=== PATIENT | female | born 1950 | race Caucasian/White ===

== ENCOUNTER 2021-09-09 06:00 | Emergency (ER) | payer MEDICARE ==
[2021-09-09 07:41] LABS: ALBUMIN 3.5 g/dL (3.2-5.5); ALBUMIN/GLOBULIN RATIO 0.8 (1.0-2.2); BILIRUBIN,TOTAL 13.7 mg/dL (0.2-1.0); CALCIUM 9.3 mg/dL (8.5-10.3); CREATININE 0.3 mg/dL (0.4-1.0); POTASSIUM 3.8 mmol/L (3.5-5.0); TOTAL PROTEIN 7.7 g/dL (6.7-8.2)
[2021-09-09 07:42] LABS: GLUCOSE, URINE (UA) NEGATIVE (NEGATIVE); KETONES,URINE (UA) NEGATIVE (NEGATIVE); LEUKOCYTE ESTERASE, URINE TRACE (NEGATIVE); NITRITE,URINE NEGATIVE (NEGATIVE); OCCULT BLOOD,URINE MODERATE (NEGATIVE); PH,URINE 7.5 PH (5.0-7.5); PROTEIN,URINE NEGATIVE (NEGATIVE); UROBILINOGEN,URINE 0.2 (NORMAL) E.U./dL (NORMAL)
--- NOTE | 2021-09-09 07:45 | ED Physician Documentation ---
PD HPI ABD PAIN - Stated complaint Stated Complaint: CONSTIPATION - Chief complaint Chief Complaint: Abd Pain - History obtained from History obtained from: Patient - Additional information Additional information: The patient comes to the emergency department chief complaint of constipation For approximately the last week and a half. The patient has also been jaundiced for around the same amount of time. She states that she got her second COVID booster since her original shots about the same time. She states she had some upper abdominal pain for a couple of days but then this subsided. The patient states that she had her last normal bowel movement around the time of her booster and that she really has not had much since. She states that she took some milk of magnesia finally a couple of days ago and had some small bits of stool come out at that time. She does not have any history of any liver issues that she knows of, but does admit to drinking 3 to 4 glasses of wine every night throughout the pandemic. No nausea or vomiting. No diarrhea. No fever or chills. The patient states that initially after the booster, she was not eating much, but this only lasted several days and now she is back to eating. She states she feels as though her "peristalsis is stopped". The patient states she feels as though she has a lot of stool in her rectum that needs to come out but it just will not. No other complaints at this time. Review of Systems Ten Systems: 10 systems reviewed and negative Constitutional: reports: Reviewed and negative Eyes: reports: Reviewed and negative Ears: reports: Reviewed and negative Nose: reports: Reviewed and negative Throat: reports: Reviewed and negative Cardiac: reports: Reviewed and negative Respiratory: reports: Reviewed and negative GI: reports: Constipation, Other (Romel) : reports: Reviewed and negative Skin: reports: Other (Jaundice) Musculoskeletal: reports: Reviewed and negative Neurologic: reports: Reviewed and negative Psychiatric: reports: Reviewed and negative Endocrine: reports: Reviewed and negative Immunocompromised: reports: Reviewed and negative PD PAST MEDICAL HISTORY - Past Medical History Past Medical History: Yes Cardiovascular: None Respiratory: None Neuro: None Endocrine/Autoimmune: None 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: 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, Breast cancer : None HEENT: Glaucoma Psych: None Musculoskeletal: None Derm: None - Past Surgical History Past Surgical History: Yes General: Other Ortho: Other - Allergies Allergies/Adverse Reactions: Allergies Allergy/AdvReac Type Severity Reaction Status Date / Time No Known Drug Allergies Allergy Verified 09/09/21 06:16 - Social History Does the pt smoke?: No Smoking Status: Never smoker Does the pt drink ETOH?: Yes Does the pt have substance abuse?: No - Immunizations Immunizations are current?: Yes - POLST Patient has POLST: No PD ED PE NORMAL - Vitals Vital signs reviewed: Yes - General General: Alert and oriented X 3, No acute distress, Well developed/nourished - HEENT HEENT: Atraumatic, PERRL, EOMI, Moist mucous membranes, Other (Moderate icterus) - Neck Neck: Supple, no meningeal sign - Cardiac Cardiac: RRR, No murmur, Strong equal pulses - Respiratory Respiratory: No respiratory distress, Clear bilaterally - Abdomen Abdomen: Soft, Non tender, Non distended, Other (Normal liver size by scratch test) - Rectal Rectal: Other (Large amount of stool in rectum, mostly thick but soft with a few claylike chunks, which are removed by disimpaction. 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, Normal speech - Psych Psych: Normal mood, Normal affect Results - Vitals Vitals: Oxygen O2 Source Room air - Labs Labs: Laboratory Tests 09/09/21 09/09/21 09/09/21 07:19 07:19 07:35 WBC 8.1 RBC 4.72 Hgb 15.4 Hct 43.1 MCV 91.3 MCH 32.6 H MCHC 35.7 RDW 12.4 Plt Count 439 MPV 10.7 Neut # (Auto) 6.3 Lymph # (Auto) 0.9 L [place] # (Auto) 0.8 Eos # (Auto) 0.1 Baso # (Auto) 0.1 Absolute Nucleated RBC 0.00 Nucleated RBC % 0.0 Sodium 129 L Potassium 3.8 Chloride 90 L Carbon Dioxide 26 Anion Gap 13.0 BUN 14 Creatinine 0.3 L Estimated GFR (MDRD) 218 Glucose 138 H Calcium 9.3 Total Bilirubin 13.7 H AST 95 H ALT 64 H Alkaline Phosphatase 385 H Total Protein 7.7 Albumin 3.5 Globulin 4.2 Albumin/Globulin Ratio 0.8 L Lipase 34 Urine Color DARK YELLOW Urine Clarity CLOUDY Urine pH 7.5 Ur Specific [place] 1.015 Urine Protein NEGATIVE Urine Glucose (UA) NEGATIVE Urine Ketones NEGATIVE Urine Occult Blood MODERATE H Urine Nitrite NEGATIVE Urine Bilirubin LARGE H Urine Urobilinogen 0.2 (NORMAL) Ur Leukocyte Esterase TRACE H Urine RBC 6-10 H Urine WBC 6-10 H Ur Squamous Epith Cells MOD Squamous H Amorphous Sediment Moderate Urine Bacteria Moderate H Urine Casts 3-5 Granular Casts Ur Microscopic Review INDICATED Urine Culture Comments NOT INDICATED - Rads (name of study) CT abd/pelvis Radiology: Final report received, EMP read indepedently, See rad report (Diffuse biliary ductal dilatation, concerning for obstruction, recommend MRI) MRCP Radiology: Final report received, EMP read indepedently, See rad report (High- grade obstruction at the ampulla of Vater, 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 She really did not have a lot of impacted stool and I discussed with her that I felt she should be able to have a bowel movement. The patient was given IV fluids and an enema was performed which did result in a large bowel movement. The patient was worked up with laboratory studies, which showed mildly elevated LFTs but a bilirubin of 13.7. Lipase was normal. The patient was sent for CT of the abdomen and pelvis with IV contrast which showed diffuse biliary ductal dilatation, concerning for obstruction. Gallbladder was hydropic but no stones were seen. 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 No evidence of metastatic disease was seen. I discussed the bren ent's case with Dr. Del Rosario of gastroenterology/oncology at [facility], and he stated that there is no role for inpatient treatment at this time and that they could see her in an expedited fashion in their clinic. He stated that she would see one of the ERCP specialists and that patient would likely have ERCP and have the mass removed at that time. He has stated that the clinic will call the pat ient at home to set up the appointment. I have relayed all of this information to the patient and her , who expressed understanding. I have advised the patient not to drink any further alcohol as her liver does not need any further stress at this point in time, given the obstructive process. We have discussed the usual indications for return under the circumstances. Patient will also fo llow-up with her primary doctor soon as possible for additional outpatient support. 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 If you develop further issues with constipation, try using a laxative from above and an o dli-hra-hsllyae enema from below to help clear things out. The more important issue is your jaundice, which has been demonstrated to be due to obstruction of the common bile duct that drains your liver, gallbladder, and pancreas. It appears that there is a small mass that is obstructing the opening from this duct into the small intestine. The opening is called the Ampulla of Vater. Your case has been discussed with Dr. Del Rosario, a gastroenterology specialist from [facility] in [place]. He does not feel that you need to necessarily be emergently transferred to the hospital, but he would like to have you seen in their clinic in an expedited fashion. He has sent your information to his clinic and they should be calling you in the next couple of days to make an appointment for you to be seen. When you go there, the plan will be for you to see a gastroenterology subspecialist who will talk to you about having a procedure called an ERCP, which will provide further imaging of the area, plus allow them to remove the mass and place a stent to keep the opening open. At this point in time, you may eat and drink normally, though it is best to avoid high-fat foods which would trigger your gallbladder and pancreas to discharge their enzymes and further exacerbate the problems with the blockage. Please to eat high-fiber foods which will help you move your bowels. It is best that you avoid alcohol altogether at this point. Discharge Date/Time: 09/09/21 15:31
[2021-09-09 07:47] LABS: BILIRUBIN,URINE LARGE (NEGATIVE); CLARITY,URINE CLOUDY (CLEAR); ICTOTEST,URINE POSITIVE
[2021-09-09] MEDS ORDERED: SODIUM CHLORIDE 0.9% 1,000 ML IV STA (07:47)
[2021-09-09 07:51] LABS: BASOPHILS # (AUTO) 0.1 10^3/uL (0.0-0.1); BASOPHILS % (AUTO) 0.6 %; EOSINOPHILS # (AUTO) 0.1 10^3/uL (0.0-0.7); EOSINOPHILS % (AUTO) 0.7 %; HCT - HEMATOCRIT 43.1 % (37.0-47.0); HGB - HEMOGLOBIN 15.4 g/dL (12.0-16.0); LYMPHOCYTES # (AUTO) 0.9 10^3/uL (1.5-3.5); LYMPHOCYTES % (AUTO) 10.5 %; MEAN CORPUSCULAR HEMOGLOBIN 32.6 pg (27.0-31.0); MEAN CORPUSCULAR HGB CONC 35.7 g/dL (32.0-36.0); MEAN CORPUSCULAR VOLUME 91.3 fL (81.0-99.0); MEAN PLATELET VOLUME 10.7 fL (7.9-10.8); MONOCYTES # (AUTO) 0.8 10^3/uL (0.0-1.0); MONOCYTES % (AUTO) 9.4 %; NEUTROPHILS # (AUTO) 6.3 10^3/uL (1.5-6.6); NEUTROPHILS % (AUTO) 78.3 %; PLT - PLATELET COUNT 439 10^3/uL (130-450); RED BLOOD COUNT 4.72 10^6/uL (4.20-5.40); RED CELL DISTRIBUTION WIDTH 12.4 % (12.0-15.0); WHITE BLOOD COUNT 8.1 x10^3/uL (4.8-10.8)
[2021-09-09 07:55] LABS: AMORPHOUS SEDIMENT,UR Moderate /LPF; BACTERIA,URINE Moderate /HPF (None Seen); CASTS, URINE 3-5 Granular Casts /LPF; SQUAMOUS EPITHELIAL CELL,UR MOD Squamous (<= Few)
[2021-09-09] MEDS ORDERED: IOPAMIDOL-300 100 ML VIAL ONE (08:21)
--- NOTE | 2021-09-09 08:49 | CT Report ---
PROCEDURE: Abdomen/Pelvis W INDICATIONS: Abdominal pain/jaundice CONTRAST: IV CONTRAST: Isovue 300 ml: 100 PO CONTRAST: *NO PO CONTRAST TECHNIQUE: After the administration of intravenous contrast, 5 mm thick sections acquired from the diaphragms to the symphysis. 5 mm thick coronal and sagittal reformats were acquired. For radiation dose reducti on, the following was used: automated exposure control, adjustment of mA and/or kV according to bren ent size. COMPARISON: None. FINDINGS: Inferior chest: No focal consolidation, pleural effusion, or pneumothorax. Biatrial enlargement, par tially imaged. No pericardial effusion. Gallbladder: Hydropic appearance of the gallbladder without calcified gallstones. No substantial wal l thickening or pericholecystic fluid is appreciated. Biliary tree: Marked intrahepatic and extrahepatic biliary ductal dilatation is seen. The common bile duct measures up to 2.6 cm. Liver: The liver demonstrates normal enhancement, size, and contour. Spleen: Normal enhancement, size and morphology is seen. Pancreas: Dilatation of the pancreatic head measuring up to 3.9 mm. No contour deforming masses appre ciated. Adrenals: Normal size without masses. Kidneys/ureters: Normal size and morphology. No solid masses or hydronephrosis. Vasculature: No evidence of aneurysm or other significant vascular pathology. Lymphatic system: No pathologic enlargement by size criteria. GI/mesentery: No evidence of intestinal obstruction or inflammatory change. The appendix is not well seen. Peritoneum/Retroperitoneum: No free intraperitoneal gas or large collection. Urinary bladder: Not well distended. Pelvic organs: No significant abnormality. Bones/soft tissues: Multifocal degenerative change. IMPRESSION: 1.Hydropic appearance of the gallbladder with marked intrahepatic and extrahepatic biliary ductal dil atation as well as mild dilatation of the pancreatic duct raising concern for an obstructing lesion. Consider magnetic resonance imaging or endoscopic ultrasound for further evaluation. Reviewed by: Huan Ley MD on 09/09/2021 8:48 AM PDT Approved by: Huan Ley MD on 09/09/2021 8:48 AM PDT Station ID: [id number]
[2021-09-09] MEDS ORDERED: GADOBUTROL 7.5 MMOL/7.5 ML VIAL ONE (11:13)
--- NOTE | 2021-09-09 13:31 | MRI Report ---
PROCEDURE: MRCP W/WO INDICATIONS: JAUNDICE, BILIARY DILATATION, ?MASS CONTRAST: IV CONTRAST: Gadavist ml: 6.3 TECHNIQUE: Coronal ultra fast SE through the abdomen, axial 2-D spoiled GE in- and [id number], and breath-hold T2 FSE with fat saturation through the biliary system and pancreas. Oblique coronal and axial thin- slice ultra fast SE, radial thick-slab ultra fast SE centered on the extrahepatic bile ducts. COMPARISON: FINDINGS: Image quality: Excellent. Pancreas and biliary system: Probable very small ampullary region malignancy with abrupt cut off of t he distal common duct and marked dilatation of the entire biliary tree. There is also mild dilatation of the pancreatic duct. Gallbladder is diffusely dilated with very mild wall thickening. No gallston es. Other solid organs: Liver and spleen are normal in size. No liver metastatic lesions identified. No adrenal nodules. Both kidneys are normal in size, without hydronephrosis. Nodes and vessels: No retroperitoneal or mesenteric adenopathy by size criteria. Aorta and inferior vena cava are normal in size. Bowel and peritoneum: Unenhanced bowel loops are normal in caliber. No free fluid. Lung bases: No basal pleural effusions. Heart size is normal. Bones and soft tissues: No ventral hernias. Bone marrow is of normal overall signal. IMPRESSION: 1. 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 There is also mild dilatation of the pancrea tic duct. 2. No evidence of metastatic disease. Reviewed by: Dwight Jo MD on 09/09/2021 1:30 PM PDT Approved by: Dwight Jo MD on 09/09/2021 1:30 PM PDT Station ID: [id number]
[2021-09-09 15:25] VITALS: BP 136/75
[2021-09-09] MEDS ORDERED: IOPAMIDOL-300 100 ML VIAL IVP ONE (16:31)
[2021-09-09] MEDS ORDERED: GADOBUTROL 7.5 MMOL/7.5 ML VIAL IVP ONE (16:51)
== END 2021-09-09 15:31 | disposition home or self-care (01) ==
LOC: ED 06:00
DX: K83.1 Obstruction of bile duct (principal); C24.1 Malignant neoplasm of ampulla of Vater
CPT/HCPCS: 36415; 74177; 74183; 80053; 81001; 83690; 85025; 96360; 99284; A9585; Q9967; 81003; 87086

== ENCOUNTER 2022-02-11 07:10 | Outpatient (CLI) | payer MEDICARE | END 2022-02-11 07:11 | disposition critical access hospital (66) | LOC: EMS 07:10 | DX: R53.1 Weakness (principal); R11.2 Nausea with vomiting, unspecified; R19.7 Diarrhea, unspecified; R10.817 Generalized abdominal tenderness | CPT/HCPCS: A0425; A0427 ==

== ENCOUNTER 2022-03-01 13:55 | Outpatient (CLI) | payer MEDICARE ==
[2022-03-01 14:22] LABS: BASOPHILS # (AUTO) 0.1 10^3/uL (0.0-0.1); BASOPHILS % (AUTO) 0.9 %; EOSINOPHILS # (AUTO) 0.1 10^3/uL (0.0-0.7); EOSINOPHILS % (AUTO) 0.6 %; HCT - HEMATOCRIT 33.4 % (37.0-47.0); HGB - HEMOGLOBIN 10.4 g/dL (12.0-16.0); LYMPHOCYTES # (AUTO) 2.6 10^3/uL (1.5-3.5); LYMPHOCYTES % (AUTO) 22.6 %; MEAN CORPUSCULAR HEMOGLOBIN 29.8 pg (27.0-31.0); MEAN CORPUSCULAR HGB CONC 31.1 g/dL (32.0-36.0); MEAN CORPUSCULAR VOLUME 95.7 fL (81.0-99.0); MEAN PLATELET VOLUME 11.7 fL (7.9-10.8); MONOCYTES # (AUTO) 1.3 10^3/uL (0.0-1.0); MONOCYTES % (AUTO) 11.6 %; NEUTROPHILS # (AUTO) 7.2 10^3/uL (1.5-6.6); NEUTROPHILS % (AUTO) 63.5 %; PLT - PLATELET COUNT 524 10^3/uL (130-450); RED BLOOD COUNT 3.49 10^6/uL (4.20-5.40); WHITE BLOOD COUNT 11.4 x10^3/uL (4.8-10.8)
[2022-03-01 14:32] LABS: ALBUMIN 2.4 g/dL (3.2-5.5); ALBUMIN/GLOBULIN RATIO 0.7 (1.0-2.2); BILIRUBIN,TOTAL 0.5 mg/dL (0.2-1.0); CALCIUM 8.9 mg/dL (8.5-10.3); CREATININE 0.4 mg/dL (0.4-1.0); MAGNESIUM 1.9 mg/dL (1.7-2.8); PHOSPHORUS 4.7 mg/dL (2.5-4.6); POTASSIUM 4.8 mmol/L (3.5-5.0); TOTAL PROTEIN 5.7 g/dL (6.7-8.2)
== END 2022-03-01 13:56 | disposition home or self-care (01) ==
LOC: LAB 13:55
PROVIDERS: ATTEND Internal Medicine
DX: C25.9 Malignant neoplasm of pancreas, unspecified (principal)
CPT/HCPCS: 36415; 80053; 83735; 84100; 85025

== ENCOUNTER 2022-03-08 09:10 | Outpatient (CLI) | payer MEDICARE ==
[2022-03-08 18:14] LABS: BASOPHILS # (AUTO) 0.1 10^3/uL (0.0-0.1); BASOPHILS % (AUTO) 0.9 %; EOSINOPHILS # (AUTO) 0.6 10^3/uL (0.0-0.7); EOSINOPHILS % (AUTO) 5.8 %; HCT - HEMATOCRIT 34.1 % (37.0-47.0); HGB - HEMOGLOBIN 10.4 g/dL (12.0-16.0); LYMPHOCYTES # (AUTO) 2.4 10^3/uL (1.5-3.5); LYMPHOCYTES % (AUTO) 23.8 %; MEAN CORPUSCULAR HEMOGLOBIN 30.6 pg (27.0-31.0); MEAN CORPUSCULAR HGB CONC 30.5 g/dL (32.0-36.0); MEAN CORPUSCULAR VOLUME 100.3 fL (81.0-99.0); MEAN PLATELET VOLUME 12.5 fL (7.9-10.8); MONOCYTES # (AUTO) 0.9 10^3/uL (0.0-1.0); MONOCYTES % (AUTO) 8.5 %; NEUTROPHILS # (AUTO) 6.1 10^3/uL (1.5-6.6); NEUTROPHILS % (AUTO) 60.7 %; PLT - PLATELET COUNT 374 10^3/uL (130-450); RED CELL DISTRIBUTION WIDTH 19.9 % (12.0-15.0)
[2022-03-08 19:07] LABS: ALBUMIN 2.7 g/dL (3.2-5.5); ALBUMIN/GLOBULIN RATIO 0.9 (1.0-2.2); ALKALINE PHOSPHATASE 118 IU/L (42-121); ALT ALANINE AMINOTRANSFERASE 13 IU/L (10-60); AST ASPARTATE AMINOTRANSFERASE 34 IU/L (10-42); BILIRUBIN,TOTAL 0.4 mg/dL (0.2-1.0); BUN - BLOOD UREA NITROGEN 33 mg/dL (6-20); CALCIUM 8.9 mg/dL (8.5-10.3); CARBON DIOXIDE - CO2 26 mmol/L (21-32); CHLORIDE 100 mmol/L (101-111); CREATININE 0.4 mg/dL (0.4-1.0); GFR - MDRD 156 (>89); GLUCOSE 108 mg/dL (70-100); MAGNESIUM 1.9 mg/dL (1.7-2.8); PHOSPHORUS 4.8 mg/dL (2.5-4.6); POTASSIUM 4.6 mmol/L (3.5-5.0); PREALBUMIN 23 mg/dL (18-45); SODIUM 134 mmol/L (135-145); TOTAL PROTEIN 5.7 g/dL (6.7-8.2); TRIGLYCERIDES 76 mg/dL
[2022-03-08 19:10] LABS: CRP - C-REACTIVE PROTEIN < 1.0 mg/dL (0-1.0)
== END 2022-03-08 23:59 | disposition home or self-care (01) ==
LOC: LAB.R 09:10
PROVIDERS: ATTEND Internal Medicine
DX: C25.9 Malignant neoplasm of pancreas, unspecified (principal)
CPT/HCPCS: 80053; 83735; 84100; 84134; 84478; 85025; 86140

== ENCOUNTER 2022-03-15 08:00 | Outpatient (CLI) | payer MEDICARE ==
[2022-03-15 17:37] LABS: EOSINOPHILS % (AUTO) 0.5 %; HCT - HEMATOCRIT 34.6 % (37.0-47.0); LYMPHOCYTES % (AUTO) 2.3 %; MEAN CORPUSCULAR HGB CONC 31.8 g/dL (32.0-36.0); MEAN CORPUSCULAR VOLUME 97.5 fL (81.0-99.0); MEAN PLATELET VOLUME 13.6 fL (7.9-10.8); NEUTROPHILS % (AUTO) 91.4 %; PLT - PLATELET COUNT 232 10^3/uL (130-450); RED BLOOD COUNT 3.55 10^6/uL (4.20-5.40); RED CELL DISTRIBUTION WIDTH 16.4 % (12.0-15.0); WHITE BLOOD COUNT 27.4 x10^3/uL (4.8-10.8)
[2022-03-15 17:40] LABS: ABNORMAL LYMPHS % (MANUAL) 0 %
[2022-03-15 17:44] LABS: ALBUMIN 2.6 g/dL (3.2-5.5); ALBUMIN/GLOBULIN RATIO 0.9 (1.0-2.2); BILIRUBIN,TOTAL 0.7 mg/dL (0.2-1.0); CALCIUM 8.3 mg/dL (8.5-10.3); CREATININE 0.5 mg/dL (0.4-1.0); MAGNESIUM 1.9 mg/dL (1.7-2.8); PHOSPHORUS 3.8 mg/dL (2.5-4.6); POTASSIUM 4.4 mmol/L (3.5-5.0); TOTAL PROTEIN 5.4 g/dL (6.7-8.2)
[2022-03-15 18:03] LABS: BAND NEUTROPHILS % (MANUAL) 4 %; DIFFERENTIAL COMMENT MANUAL DIFFERENTIAL; LYMPHOCYTES # (MANUAL) 1.1 10^3/uL (1.5-3.5); LYMPHOCYTES % (MANUAL) 4 %; MONOCYTES # (MANUAL) 0.3 10^3/uL (0.0-1.0); PLATELET ESTIMATE, MANUAL NORMAL (130-450,000) (NORMAL); PLATELET MORPHOLOGY NORMAL APPEARANCE (NORMAL); RBC MORPHOLOGY (MULTIPLE) 2+ ANISOCYTOSIS (NORMAL); WBC MORPHOLOGY (MULTIPLE) 1+ TOXIC GRANULATION (NORMAL)
== END 2022-03-15 23:59 | disposition home or self-care (01) ==
LOC: LAB.R 08:00
PROVIDERS: ATTEND Internal Medicine
DX: C25.9 Malignant neoplasm of pancreas, unspecified (principal)
CPT/HCPCS: 80053; 83735; 84100; 85025

== ENCOUNTER 2022-03-22 08:00 | Outpatient (CLI) | payer MEDICARE ==
[2022-03-22 18:05] LABS: BASOPHILS % (AUTO) 0.2 %; EOSINOPHILS # (AUTO) 0.1 10^3/uL (0.0-0.7); EOSINOPHILS % (AUTO) 0.5 %; HCT - HEMATOCRIT 32.2 % (37.0-47.0); HGB - HEMOGLOBIN 10.1 g/dL (12.0-16.0); LYMPHOCYTES % (AUTO) 16.2 %; MEAN CORPUSCULAR HEMOGLOBIN 30.1 pg (27.0-31.0); MEAN CORPUSCULAR HGB CONC 31.4 g/dL (32.0-36.0); MEAN CORPUSCULAR VOLUME 95.8 fL (81.0-99.0); MEAN PLATELET VOLUME 12.3 fL (7.9-10.8); MONOCYTES # (AUTO) 0.7 10^3/uL (0.0-1.0); MONOCYTES % (AUTO) 5.7 %; NEUTROPHILS # (AUTO) 9.6 10^3/uL (1.5-6.6); NEUTROPHILS % (AUTO) 76.8 %; PLT - PLATELET COUNT 221 10^3/uL (130-450); RED BLOOD COUNT 3.36 10^6/uL (4.20-5.40); RED CELL DISTRIBUTION WIDTH 15.6 % (12.0-15.0); WHITE BLOOD COUNT 12.6 x10^3/uL (4.8-10.8)
[2022-03-22 18:31] LABS: SLIDE REVIEW? Indicated
[2022-03-22 18:43] LABS: ALBUMIN 2.3 g/dL (3.2-5.5); ALBUMIN/GLOBULIN RATIO 0.7 (1.0-2.2); BILIRUBIN,TOTAL 0.4 mg/dL (0.2-1.0); CALCIUM 8.3 mg/dL (8.5-10.3); CREATININE 0.4 mg/dL (0.4-1.0); MAGNESIUM 1.8 mg/dL (1.7-2.8); PHOSPHORUS 3.4 mg/dL (2.5-4.6); TOTAL PROTEIN 5.4 g/dL (6.7-8.2)
[2022-03-22 19:01] LABS: DIFFERENTIAL COMMENT MANUAL=AUTO DIFF; PLATELET ESTIMATE, MANUAL NORMAL (130-450,000) (NORMAL); PLATELET MORPHOLOGY NORMAL APPEARANCE (NORMAL); RBC MORPHOLOGY (MULTIPLE) NORMAL APPEARANCE (NORMAL)
== END 2022-03-22 23:59 | disposition home or self-care (01) ==
LOC: LAB.R 08:00
PROVIDERS: ATTEND Internal Medicine
DX: C25.9 Malignant neoplasm of pancreas, unspecified (principal)
CPT/HCPCS: 80053; 83735; 84100; 85025

== ENCOUNTER 2022-03-29 11:22 | Outpatient (CLI) | payer MEDICARE ==
[2022-03-29 15:30] LABS: BASOPHILS % (AUTO) 0.1 %; EOSINOPHILS % (AUTO) 0.1 %; HCT - HEMATOCRIT 33.2 % (37.0-47.0); HGB - HEMOGLOBIN 10.7 g/dL (12.0-16.0); LYMPHOCYTES % (AUTO) 5.1 %; MEAN CORPUSCULAR HEMOGLOBIN 30.6 pg (27.0-31.0); MEAN CORPUSCULAR HGB CONC 32.2 g/dL (32.0-36.0); MEAN CORPUSCULAR VOLUME 94.9 fL (81.0-99.0); MEAN PLATELET VOLUME 11.6 fL (7.9-10.8); MONOCYTES % (AUTO) 1.4 %; NEUTROPHILS % (AUTO) 89.7 %; PLT - PLATELET COUNT 187 10^3/uL (130-450); WHITE BLOOD COUNT 34.9 x10^3/uL (4.8-10.8)
[2022-03-29 15:32] LABS: ABNORMAL LYMPHS % (MANUAL) 0 %
[2022-03-29 15:58] LABS: BAND NEUTROPHILS % (MANUAL) 6 %; LYMPHOCYTES # (MANUAL) 2.8 10^3/uL (1.5-3.5); LYMPHOCYTES % (MANUAL) 8 %; MONOCYTES # (MANUAL) 0.3 10^3/uL (0.0-1.0); NEUTROPHILS # (MANUAL) 31.8 10^3/uL (1.5-6.6); PLATELET ESTIMATE, MANUAL NORMAL (130-450,000) (NORMAL); PLATELET MORPHOLOGY NORMAL APPEARANCE (NORMAL); RBC MORPHOLOGY (MULTIPLE) NORMAL APPEARANCE (NORMAL); WBC MORPHOLOGY (MULTIPLE) 1+ TOXIC GRANULATION (NORMAL)
[2022-03-29 15:59] LABS: DIFFERENTIAL COMMENT MANUAL DIFFERENTIAL
[2022-03-29 16:02] LABS: ALBUMIN 2.7 g/dL (3.2-5.5); BILIRUBIN,TOTAL 0.2 mg/dL (0.2-1.0); CALCIUM 8.4 mg/dL (8.5-10.3); CREATININE 0.4 mg/dL (0.4-1.0); MAGNESIUM 2.1 mg/dL (1.7-2.8); PHOSPHORUS 3.6 mg/dL (2.5-4.6); POTASSIUM 4.2 mmol/L (3.5-5.0); TOTAL PROTEIN 5.5 g/dL (6.7-8.2)
== END 2022-03-29 11:23 | disposition home or self-care (01) ==
LOC: LAB 11:22 → LAB.R 11:23
PROVIDERS: ATTEND Internal Medicine
DX: C25.9 Malignant neoplasm of pancreas, unspecified (principal)
CPT/HCPCS: 36415; 80053; 83735; 84100; 85025

== ENCOUNTER 2022-04-05 14:39 | Outpatient (CLI) | payer MEDICARE ==
[2022-04-05 14:47] LABS: BASOPHILS % (AUTO) 0.4 %; EOSINOPHILS % (AUTO) 0.3 %; HCT - HEMATOCRIT 34.5 % (37.0-47.0); HGB - HEMOGLOBIN 10.8 g/dL (12.0-16.0); LYMPHOCYTES % (AUTO) 16.5 %; MEAN CORPUSCULAR HGB CONC 31.3 g/dL (32.0-36.0); MEAN CORPUSCULAR VOLUME 95.8 fL (81.0-99.0); MEAN PLATELET VOLUME 12.7 fL (7.9-10.8); MONOCYTES % (AUTO) 10.3 %; NEUTROPHILS % (AUTO) 69.3 %; PLT - PLATELET COUNT 270 10^3/uL (130-450); RED CELL DISTRIBUTION WIDTH 15.3 % (12.0-15.0); WHITE BLOOD COUNT 15.8 x10^3/uL (4.8-10.8)
[2022-04-05 15:13] LABS: ABNORMAL LYMPHS % (MANUAL) 0 %
[2022-04-05 15:23] LABS: ALBUMIN 2.6 g/dL (3.2-5.5); ALBUMIN/GLOBULIN RATIO 0.8 (1.0-2.2); ALKALINE PHOSPHATASE 182 IU/L (42-121); ALT ALANINE AMINOTRANSFERASE 16 IU/L (10-60); AST ASPARTATE AMINOTRANSFERASE 39 IU/L (10-42); BILIRUBIN,TOTAL < 0.2 mg/dL (0.2-1.0); BUN - BLOOD UREA NITROGEN 25 mg/dL (6-20); CALCIUM 8.7 mg/dL (8.5-10.3); CARBON DIOXIDE - CO2 28 mmol/L (21-32); CHLORIDE 100 mmol/L (101-111); CREATININE 0.4 mg/dL (0.4-1.0); GFR - MDRD 156 (>89); GLUCOSE 116 mg/dL (70-100); MAGNESIUM 1.9 mg/dL (1.7-2.8); PHOSPHORUS 3.8 mg/dL (2.5-4.6); POTASSIUM 4.5 mmol/L (3.5-5.0); SODIUM 135 mmol/L (135-145); TOTAL PROTEIN 5.7 g/dL (6.7-8.2)
[2022-04-05 15:48] LABS: BAND NEUTROPHILS % (MANUAL) 6 %; BASOPHILS # (MANUAL) 0.2 10^3/uL (0-0.1); BASOPHILS % (MANUAL) 1 %; DIFFERENTIAL COMMENT MANUAL DIFFERENTIAL; LYMPHOCYTES # (MANUAL) 2.5 10^3/uL (1.5-3.5); LYMPHOCYTES % (MANUAL) 16 %; MONOCYTES # (MANUAL) 1.3 10^3/uL (0.0-1.0); NEUTROPHILS # (MANUAL) 11.9 10^3/uL (1.5-6.6); PLATELET ESTIMATE, MANUAL NORMAL (130-450,000) (NORMAL); PLATELET MORPHOLOGY NORMAL APPEARANCE (NORMAL); RBC MORPHOLOGY (MULTIPLE) NORMAL APPEARANCE (NORMAL)
== END 2022-04-05 14:40 | disposition home or self-care (01) ==
LOC: LAB.R 14:39
PROVIDERS: ATTEND Internal Medicine
DX: C25.9 Malignant neoplasm of pancreas, unspecified (principal)
CPT/HCPCS: 80053; 83735; 84100; 85025

== ENCOUNTER 2022-04-12 15:10 | Outpatient (CLI) | payer MEDICARE ==
[2022-04-12 15:30] LABS: HCT - HEMATOCRIT 34.2 % (37.0-47.0); HGB - HEMOGLOBIN 11.2 g/dL (12.0-16.0); LYMPHOCYTES # (AUTO) 1.3 10^3/uL (1.5-3.5); LYMPHOCYTES % (AUTO) 1.7 %; MEAN CORPUSCULAR HEMOGLOBIN 31.7 pg (27.0-31.0); MEAN CORPUSCULAR HGB CONC 32.7 g/dL (32.0-36.0); MEAN CORPUSCULAR VOLUME 96.9 fL (81.0-99.0); MEAN PLATELET VOLUME 12.6 fL (7.9-10.8); MONOCYTES # (AUTO) 0.6 10^3/uL (0.0-1.0); MONOCYTES % (AUTO) 0.8 %; NEUTROPHILS # (AUTO) 70.8 10^3/uL (1.5-6.6); NEUTROPHILS % (AUTO) 91.9 %; PLT - PLATELET COUNT 153 10^3/uL (130-450); RED BLOOD COUNT 3.53 10^6/uL (4.20-5.40); RED CELL DISTRIBUTION WIDTH 15.2 % (12.0-15.0)
[2022-04-12 15:46] LABS: ALBUMIN 2.9 g/dL (3.2-5.5); ALBUMIN/GLOBULIN RATIO 1.1 (1.0-2.2); BILIRUBIN,TOTAL 0.5 mg/dL (0.2-1.0); CALCIUM 8.5 mg/dL (8.5-10.3); CREATININE 0.4 mg/dL (0.4-1.0); PHOSPHORUS 3.6 mg/dL (2.5-4.6); POTASSIUM 4.2 mmol/L (3.5-5.0); TOTAL PROTEIN 5.6 g/dL (6.7-8.2)
[2022-04-12 16:15] LABS: SLIDE REVIEW? Indicated; WHITE BLOOD COUNT 77.1 x10^3/uL (4.8-10.8)
[2022-04-12 17:03] LABS: DIFFERENTIAL COMMENT MANUAL=AUTO DIFF; PLATELET ESTIMATE, MANUAL NORMAL (130-450,000) (NORMAL); PLATELET MORPHOLOGY NORMAL APPEARANCE (NORMAL); RBC MORPHOLOGY (MULTIPLE) NORMAL APPEARANCE (NORMAL)
== END 2022-04-12 15:11 | disposition home or self-care (01) ==
LOC: LAB.R 15:10
PROVIDERS: ATTEND Internal Medicine
DX: C25.9 Malignant neoplasm of pancreas, unspecified (principal)
CPT/HCPCS: 80053; 83735; 84100; 84134; 84478; 85025; 86140

== ENCOUNTER 2022-04-19 08:00 | Outpatient (CLI) | payer MEDICARE ==
[2022-04-19 15:59] LABS: BASOPHILS % (AUTO) 0.4 %; EOSINOPHILS % (AUTO) 0.3 %; HCT - HEMATOCRIT 32.8 % (37.0-47.0); HGB - HEMOGLOBIN 10.4 g/dL (12.0-16.0); LYMPHOCYTES % (AUTO) 18.2 %; MEAN CORPUSCULAR HEMOGLOBIN 30.4 pg (27.0-31.0); MEAN CORPUSCULAR HGB CONC 31.7 g/dL (32.0-36.0); MEAN CORPUSCULAR VOLUME 95.9 fL (81.0-99.0); MEAN PLATELET VOLUME 13.7 fL (7.9-10.8); MONOCYTES % (AUTO) 8.7 %; NEUTROPHILS % (AUTO) 71.3 %; PLT - PLATELET COUNT 234 10^3/uL (130-450); RED BLOOD COUNT 3.42 10^6/uL (4.20-5.40); RED CELL DISTRIBUTION WIDTH 15.6 % (12.0-15.0); WHITE BLOOD COUNT 12.6 x10^3/uL (4.8-10.8)
[2022-04-19 16:02] LABS: ABNORMAL LYMPHS % (MANUAL) 0 %
[2022-04-19 16:08] LABS: ALBUMIN 2.7 g/dL (3.2-5.5); BILIRUBIN,TOTAL 0.2 mg/dL (0.2-1.0); CALCIUM 8.3 mg/dL (8.5-10.3); CREATININE 0.4 mg/dL (0.4-1.0); MAGNESIUM 1.8 mg/dL (1.7-2.8); PHOSPHORUS 3.4 mg/dL (2.5-4.6); POTASSIUM 4.3 mmol/L (3.5-5.0); TOTAL PROTEIN 5.3 g/dL (6.7-8.2)
[2022-04-19 16:37] LABS: BAND NEUTROPHILS % (MANUAL) 1 %; EOSINOPHILS # (MANUAL) 0.1 10^3/uL (0-0.7); LYMPHOCYTES # (MANUAL) 2.1 10^3/uL (1.5-3.5); LYMPHOCYTES % (MANUAL) 11 %; MONOCYTES # (MANUAL) 1.1 10^3/uL (0.0-1.0); NEUTROPHILS # (MANUAL) 9.2 10^3/uL (1.5-6.6); REACTIVE LYMPHS % (MANUAL) 6 %
[2022-04-19 16:38] LABS: DIFFERENTIAL COMMENT MANUAL DIFFERENTIAL; PLATELET ESTIMATE, MANUAL NORMAL (130-450,000) (NORMAL); PLATELET MORPHOLOGY NORMAL APPEARANCE (NORMAL); WBC MORPHOLOGY (MULTIPLE) NORMAL APPEARANCE (NORMAL)
== END 2022-04-19 23:59 | disposition home or self-care (01) ==
LOC: LAB.R 08:00
PROVIDERS: ATTEND Internal Medicine
DX: C25.9 Malignant neoplasm of pancreas, unspecified (principal)
CPT/HCPCS: 80053; 83735; 84100; 85025

== ENCOUNTER 2022-04-26 17:42 | Outpatient (CLI) | payer MEDICARE ==
[2022-04-26 18:04] LABS: BASOPHILS % (AUTO) 0.1 %; EOSINOPHILS # (AUTO) 0.1 10^3/uL (0.0-0.7); EOSINOPHILS % (AUTO) 0.1 %
[2022-04-26 18:09] LABS: BASOPHILS # (AUTO) 0.1 10^3/uL (0.0-0.1); HCT - HEMATOCRIT 32.9 % (37.0-47.0); HGB - HEMOGLOBIN 10.7 g/dL (12.0-16.0); LYMPHOCYTES % (AUTO) 2.5 %; MEAN CORPUSCULAR HEMOGLOBIN 31.6 pg (27.0-31.0); MEAN CORPUSCULAR HGB CONC 32.5 g/dL (32.0-36.0); MEAN CORPUSCULAR VOLUME 97.1 fL (81.0-99.0); MEAN PLATELET VOLUME 13.2 fL (7.9-10.8); MONOCYTES # (AUTO) 0.9 10^3/uL (0.0-1.0); MONOCYTES % (AUTO) 1.1 %; NEUTROPHILS # (AUTO) 73.1 10^3/uL (1.5-6.6); NEUTROPHILS % (AUTO) 91.7 %; PLT - PLATELET COUNT 163 10^3/uL (130-450); RED BLOOD COUNT 3.39 10^6/uL (4.20-5.40); RED CELL DISTRIBUTION WIDTH 15.9 % (12.0-15.0)
[2022-04-26 18:10] LABS: SLIDE REVIEW? Indicated
[2022-04-26 18:13] LABS: ALBUMIN 2.9 g/dL (3.2-5.5); ALBUMIN/GLOBULIN RATIO 1.2 (1.0-2.2); BILIRUBIN,TOTAL 0.5 mg/dL (0.2-1.0); CALCIUM 8.3 mg/dL (8.5-10.3); CREATININE 0.3 mg/dL (0.4-1.0); PHOSPHORUS 3.9 mg/dL (2.5-4.6); POTASSIUM 4.5 mmol/L (3.5-5.0); TOTAL PROTEIN 5.4 g/dL (6.7-8.2)
[2022-04-26 19:14] LABS: DIFFERENTIAL COMMENT MANUAL=AUTO DIFF; PLATELET ESTIMATE, MANUAL NORMAL (130-450,000) (NORMAL); PLATELET MORPHOLOGY NORMAL APPEARANCE (NORMAL); RBC MORPHOLOGY (MULTIPLE) NORMAL APPEARANCE (NORMAL); WBC MORPHOLOGY (MULTIPLE) 1+ TOXIC GRANULATION (NORMAL)
[2022-04-26 20:08] LABS: WHITE BLOOD COUNT 79.7 x10^3/uL (4.8-10.8)
== END 2022-04-26 17:43 | disposition home or self-care (01) ==
LOC: LAB.R 17:42
PROVIDERS: ATTEND Internal Medicine
DX: C25.9 Malignant neoplasm of pancreas, unspecified (principal)
CPT/HCPCS: 80053; 83735; 84100; 85025

== ENCOUNTER 2022-05-04 15:21 | Outpatient (CLI) | payer MEDICARE ==
[2022-05-04 15:38] LABS: BASOPHILS # (AUTO) 0.1 10^3/uL (0.0-0.1); CALCIUM 8.8 mg/dL (8.5-10.3); EOSINOPHILS # (AUTO) 0.1 10^3/uL (0.0-0.7); EOSINOPHILS % (AUTO) 0.6 %; HCT - HEMATOCRIT 36.1 % (37.0-47.0); HGB - HEMOGLOBIN 11.1 g/dL (12.0-16.0); LYMPHOCYTES # (AUTO) 2.1 10^3/uL (1.5-3.5); LYMPHOCYTES % (AUTO) 18.2 %; MEAN CORPUSCULAR HEMOGLOBIN 29.4 pg (27.0-31.0); MEAN CORPUSCULAR HGB CONC 30.7 g/dL (32.0-36.0); MEAN CORPUSCULAR VOLUME 95.8 fL (81.0-99.0); MEAN PLATELET VOLUME 13.9 fL (7.9-10.8); MONOCYTES % (AUTO) 9.1 %; NEUTROPHILS # (AUTO) 8.1 10^3/uL (1.5-6.6); NEUTROPHILS % (AUTO) 70.3 %; PLT - PLATELET COUNT 246 10^3/uL (130-450); POTASSIUM 4.5 mmol/L (3.5-5.0); RED BLOOD COUNT 3.77 10^6/uL (4.20-5.40); RED CELL DISTRIBUTION WIDTH 15.9 % (12.0-15.0); WHITE BLOOD COUNT 11.5 x10^3/uL (4.8-10.8)
[2022-05-04 16:08] LABS: ALBUMIN 3.1 g/dL (3.2-5.5); BILIRUBIN,TOTAL 0.4 mg/dL (0.2-1.0); CREATININE 0.4 mg/dL (0.4-1.0); PHOSPHORUS 4.3 mg/dL (2.5-4.6); TOTAL PROTEIN 6.1 g/dL (6.7-8.2)
== END 2022-05-04 15:22 | disposition home or self-care (01) ==
LOC: LAB.R 15:21
PROVIDERS: ATTEND Internal Medicine
DX: C25.9 Malignant neoplasm of pancreas, unspecified (principal)
CPT/HCPCS: 80053; 83735; 84100; 85025

== ENCOUNTER 2022-05-11 16:24 | Outpatient (CLI) | payer MEDICARE ==
[2022-05-11 16:35] LABS: BASOPHILS % (AUTO) 0.1 %; EOSINOPHILS # (AUTO) 0.3 10^3/uL (0.0-0.7); EOSINOPHILS % (AUTO) 0.6 %; HCT - HEMATOCRIT 36.4 % (37.0-47.0); HGB - HEMOGLOBIN 11.3 g/dL (12.0-16.0); LYMPHOCYTES # (AUTO) 2.1 10^3/uL (1.5-3.5); LYMPHOCYTES % (AUTO) 4.6 %; MEAN CORPUSCULAR VOLUME 96.6 fL (81.0-99.0); MONOCYTES # (AUTO) 1.1 10^3/uL (0.0-1.0); MONOCYTES % (AUTO) 2.5 %; NEUTROPHILS % (AUTO) 89.1 %; PLT - PLATELET COUNT 200 10^3/uL (130-450); RED BLOOD COUNT 3.77 10^6/uL (4.20-5.40)
[2022-05-11 16:46] LABS: SLIDE REVIEW? Indicated; WHITE BLOOD COUNT 44.9 x10^3/uL (4.8-10.8)
[2022-05-11 16:51] LABS: ALBUMIN 3.2 g/dL (3.2-5.5); ALBUMIN/GLOBULIN RATIO 1.2 (1.0-2.2); ALKALINE PHOSPHATASE 230 IU/L (42-121); ALT ALANINE AMINOTRANSFERASE 15 IU/L (10-60); AST ASPARTATE AMINOTRANSFERASE 35 IU/L (10-42); BILIRUBIN,TOTAL 0.4 mg/dL (0.2-1.0); BUN - BLOOD UREA NITROGEN 31 mg/dL (6-20); CALCIUM 8.6 mg/dL (8.5-10.3); CARBON DIOXIDE - CO2 27 mmol/L (21-32); CHLORIDE 94 mmol/L (101-111); CREATININE 0.4 mg/dL (0.4-1.0); GFR - MDRD 156 (>89); GLUCOSE 106 mg/dL (70-100); PHOSPHORUS 4.1 mg/dL (2.5-4.6); POTASSIUM 4.6 mmol/L (3.5-5.0); PREALBUMIN 21 mg/dL (18-45); SODIUM 133 mmol/L (135-145); TOTAL PROTEIN 5.8 g/dL (6.7-8.2); TRIGLYCERIDES 59 mg/dL
[2022-05-11 16:54] LABS: CRP - C-REACTIVE PROTEIN < 1.0 mg/dL (0-1.0)
[2022-05-11 17:16] LABS: DIFFERENTIAL COMMENT MANUAL=AUTO DIFF; PLATELET ESTIMATE, MANUAL NORMAL (130-450,000) (NORMAL); PLATELET MORPHOLOGY NORMAL APPEARANCE (NORMAL); RBC MORPHOLOGY (MULTIPLE) NORMAL APPEARANCE (NORMAL)
== END 2022-05-11 16:25 | disposition home or self-care (01) ==
LOC: LAB.R 16:24
PROVIDERS: ATTEND Internal Medicine
DX: C25.9 Malignant neoplasm of pancreas, unspecified (principal)
CPT/HCPCS: 80053; 83735; 84100; 84134; 84478; 85025; 86140

== ENCOUNTER 2022-05-17 08:00 | Outpatient (CLI) | payer MEDICARE ==
[2022-05-17 17:20] LABS: ALBUMIN/GLOBULIN RATIO 1.1 (1.0-2.2); BILIRUBIN,TOTAL 0.3 mg/dL (0.2-1.0); CALCIUM 8.7 mg/dL (8.5-10.3); CREATININE 0.5 mg/dL (0.4-1.0); MAGNESIUM 1.7 mg/dL (1.7-2.8); PHOSPHORUS 3.9 mg/dL (2.5-4.6); POTASSIUM 4.3 mmol/L (3.5-5.0); TOTAL PROTEIN 5.7 g/dL (6.7-8.2)
[2022-05-17 17:40] LABS: BASOPHILS # (AUTO) 0.1 10^3/uL (0.0-0.1); BASOPHILS % (AUTO) 0.6 %; EOSINOPHILS # (AUTO) 0.1 10^3/uL (0.0-0.7); EOSINOPHILS % (AUTO) 0.3 %; HCT - HEMATOCRIT 35.1 % (37.0-47.0); HGB - HEMOGLOBIN 11.1 g/dL (12.0-16.0); LYMPHOCYTES # (AUTO) 2.5 10^3/uL (1.5-3.5); LYMPHOCYTES % (AUTO) 13.4 %; MEAN CORPUSCULAR HEMOGLOBIN 29.7 pg (27.0-31.0); MEAN CORPUSCULAR HGB CONC 31.6 g/dL (32.0-36.0); MEAN CORPUSCULAR VOLUME 93.9 fL (81.0-99.0); MEAN PLATELET VOLUME 12.8 fL (7.9-10.8); MONOCYTES # (AUTO) 1.4 10^3/uL (0.0-1.0); MONOCYTES % (AUTO) 7.3 %; NEUTROPHILS # (AUTO) 14.4 10^3/uL (1.5-6.6); NEUTROPHILS % (AUTO) 77.6 %; PLT - PLATELET COUNT 247 10^3/uL (130-450); RED BLOOD COUNT 3.74 10^6/uL (4.20-5.40); RED CELL DISTRIBUTION WIDTH 16.2 % (12.0-15.0); WHITE BLOOD COUNT 18.5 x10^3/uL (4.8-10.8)
== END 2022-05-17 23:59 | disposition home or self-care (01) ==
LOC: LAB.R 08:00
PROVIDERS: ATTEND Internal Medicine
DX: C25.9 Malignant neoplasm of pancreas, unspecified (principal)
CPT/HCPCS: 80053; 83735; 84100; 85025

== ENCOUNTER 2022-07-05 12:53 | Emergency (ER) | payer MEDICARE ==
[2022-07-05] MEDS ORDERED: iohexoL-300 100 ML VIAL ONE (13:57)
[2022-07-05 14:00] VITALS: BP 144/74
[2022-07-05 14:02] LABS: BASOPHILS # (AUTO) 0.1 10^3/uL (0.0-0.1); BASOPHILS % (AUTO) 0.6 %; EOSINOPHILS # (AUTO) 0.1 10^3/uL (0.0-0.7); EOSINOPHILS % (AUTO) 0.4 %; HCT - HEMATOCRIT 36.9 % (37.0-47.0); HGB - HEMOGLOBIN 11.8 g/dL (12.0-16.0); LYMPHOCYTES # (AUTO) 2.1 10^3/uL (1.5-3.5); LYMPHOCYTES % (AUTO) 18.6 %; MEAN CORPUSCULAR HEMOGLOBIN 28.4 pg (27.0-31.0); MEAN CORPUSCULAR VOLUME 88.9 fL (81.0-99.0); MEAN PLATELET VOLUME 11.3 fL (7.9-10.8); MONOCYTES # (AUTO) 1.5 10^3/uL (0.0-1.0); MONOCYTES % (AUTO) 12.9 %; NEUTROPHILS # (AUTO) 7.6 10^3/uL (1.5-6.6); PLT - PLATELET COUNT 323 10^3/uL (130-450); RED BLOOD COUNT 4.15 10^6/uL (4.20-5.40); RED CELL DISTRIBUTION WIDTH 17.2 % (12.0-15.0); WHITE BLOOD COUNT 11.4 x10^3/uL (4.8-10.8)
[2022-07-05 14:28] LABS: ALBUMIN 3.5 g/dL (3.2-5.5); BILIRUBIN,TOTAL 0.6 mg/dL (0.2-1.0); CREATININE 0.4 mg/dL (0.4-1.0); POTASSIUM 4.2 mmol/L (3.5-5.0); TOTAL PROTEIN 6.9 g/dL (6.7-8.2)
[2022-07-05] MEDS ORDERED: SODIUM CHLORIDE 0.9% 1,000 ML IV STA ×2 (14:32)
--- NOTE | 2022-07-05 14:32 | ED Physician Documentation ---
History of Present Illness - Stated complaint Stated Complaint: ABD PX - Chief complaint Chief Complaint: Abd Pain - History obtained from History obtained from: Patient, Family - History of Present Illness Timing: Last night Pain level max: 6 Pain level now: 6 - Additonal information Additional information: Patient is a 71-year-old female who states that she has a history of ampullary cancer. She started having upper abdominal pain last night and vomiting today. She is not currently on chemotherapy. She went to the [facility] clinic who sent her here for possible "bowel obstruction". No fevers. No chills. Nothing makes it better or worse. Review of Systems Constitutional: denies: Fever, Chills GI: reports: Abdominal Pain (Upper abdominal pain, nonradiating., Dull, aching), Vomiting, Diarrhea (Chronic, unchanged). 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 : None HEENT: Glaucoma Psych: None Musculoskeletal: Fatigue Derm: None - Past Surgical History Past Surgical History: Yes General: Cholecystectomy, Other Ortho: Other - Present Medications Home Medications: Ambulatory Orders Medication Instructions Recorded Confirmed Apixaban [Eliquis] 5 mg PO BID 02/11/22 06/16/22 Latanoprost 0.005% Ophth Drops 1 drops EACHEYE QPM 02/11/22 06/16/22 [Xalatan Ophth Drops] Lipase/Protease/Amylase [Truman Duran 1 cap PO BID PRN 02/11/22 06/16/22 36,000 Unit Capsule] Lipase/Protease/Amylase [Truman Duran 2 cap PO TIDWM 02/11/22 06/16/22 36,000 Unit Capsule] Loperamide [Imodium] 2 - 4 mg PO QID PRN 02/11/22 06/16/22 Pantoprazole Sodium [Protonix] 20 mg PO QDAC 02/11/22 06/16/22 Prochlorperazine Maleate 10 mg PO TID PRN 02/11/22 06/16/22 [Compazine] Timolol 0.25% Ophth Drops 1 drops EACHEYE BID 02/11/22 06/16/22 [Timoptic 0.25% Ophth Drops] ondansetron HCL [Ondansetron HCl] 8 mg PO Q8H PRN 02/11/22 06/16/22 Digoxin [Lanoxin] 125 mcg PO DAILY #30 tab 02/21/22 06/16/22 Fat Emulsion 20% [Intralipid 20%] 250 ml IV 1900 #1 each 02/21/22 06/16/22 Multivitamin [Infuvite] 10 ml IV 1900 ml 02/21/22 06/16/22 Sodium Chloride 0.9% [Normal 1,000 ml IV ONCE #1000 ml 02/21/22 06/16/22 Saline 0.9%] TPN (Clinimix E 5/15) [Clinimix E 1,500 ml IV 1900 #1 each 02/21/22 06/16/22 5%-15% Solution] Trace Elements [Tralement Vial] 1 ml IV 1900 ml 02/21/22 06/16/22 Metoprolol Tartrate [Lopressor] 25 mg PO BID #60 tab 02/22/22 06/16/22 Metoclopramide [Reglan] 10 mg PO Q6H PRN #30 tablet 03/17/22 06/16/22 Diphenoxylate/Atropine [Lomotil] 1 - 2 tab PO QID PRN #90 tab 03/24/22 06/16/22 Diphenoxylate/Atropine [Lomotil] 2.5 mg PO DAILY PRN MDD 8 TABS/DAY 03/24/22 06/16/22 dexAMETHasone [Decadron] 4 mg PO UD 04/05/22 06/16/22 OLANZapine [Olanzapine] 5 mg PO PRN PRN 07/05/22 07/05/22 - Allergies Allergies/Adverse Reactions: Allergies Allergy/AdvReac Type Severity Reaction Status Date / Time strawberry Allergy Unknown Verified 07/05/22 13:01 - Social History Does the pt smoke?: No Smoking Status: Never smoker Does the pt drink ETOH?: Yes Does the pt have substance abuse?: No - Immunizations Immunizations are current?: Yes - POLST Patient has POLST: No PD ED PE NORMAL - Vitals Vital signs reviewed: Yes - General General: Alert and oriented X 3, No acute distress - HEENT HEENT: Moist mucous membranes - Neck Neck: Supple, no meningeal sign - Cardiac Cardiac: RRR, Strong equal pulses - Respiratory Respiratory: No respiratory distress, Clear bilaterally - Abdomen Abdomen: Normal bowel sounds, Soft, Non tender, Non distended - Derm Derm: Warm and dry, No rash - Extremities Extremities: No edema - Neuro Neuro: Alert and oriented X 3 - Psych Psych: Normal mood, Normal affect Results - Vitals Vitals: Vital Signs - 24 hr 07/05/22 07/05/22 07/05/22 12:58 13:58 16:35 Temperature 35.7 C L Heart Rate 75 73 88 Respiratory 16 13 14 Rate Blood Pressure 147/88 H 144/74 H O2 Saturation 100 100 98 Oxygen O2 Source Room air - Labs Labs: Laboratory Tests 07/05/22 07/05/22 13:56 13:56 WBC 11.4 H RBC 4.15 L Hgb 11.8 L Hct 36.9 L MCV 88.9 MCH 28.4 MCHC 32.0 RDW 17.2 H Plt Count 323 MPV 11.3 H Neut # (Auto) 7.6 H Lymph # (Auto) 2.1 [place] # (Auto) 1.5 H Eos # (Auto) 0.1 Baso # (Auto) 0.1 Absolute Nucleated RBC 0.00 Nucleated RBC % 0.0 Sodium 130 L Potassium 4.2 Chloride 96 L Carbon Dioxide 25 Anion Gap 9.0 BUN 28 H Creatinine 0.4 Estimated GFR (MDRD) 156 Glucose 117 H Calcium 9.0 Total Bilirubin 0.6 AST 28 ALT 10 Alkaline Phosphatase 114 Total Protein 6.9 Albumin 3.5 Globulin 3.4 Albumin/Globulin Ratio 1.0 Lipase 26 - Rads (name of study) CT abd/pelvis Radiology: Final report received, See rad report PD Medical Decision Making - ED course Complexity details: reviewed results, re-evaluated patient, considered differential, d/w patient ED course: Patient was given IV fluids and feels better. No significant finding on CBC other than a mild leukocytosis and mild anemia. Her chemistry is significant for elevated BUN to creatinine ratio and a mild hyponatremia. Expect that this would resolve with the IV fluids. Her CT scan shows new liver metastases and the mass in front of her inferior vena cava has grown in size. Discussed the case with Dr. William, oncology and he recommends to call the clinic tomorrow for further follow-up and care. Patient is on TPN at home. Patient counseled regarding signs and symptoms for which I believe and urgent re-evaluation would be necessary. Patient with good understanding of and agreement to plan and is comfortable going home at this time This document was made in part using voice recognition software. While efforts are made to proofread this document, sound alike and grammatical errors may occur. Departure - Departure Disposition: Home, Self Care Clinical Impression: Abdominal malignant neoplasm Condition: Good Instructions: ED Abdominal Pain Female Non-Specific Abdominal Pain Follow-Up: SOCRATES PRIEST MD [Provider Admit Priv/Credential] - SOCRATES PRIEST MD [Provider Admit Priv/Credential] - Within 1 week Comments: I spoke with Dr. Weinstein today. He recommends that you follow-up with Dr. Priest for further care. You were given IV fluids today as well. Please contact Dr. Priest's office tomorrow. Your CT results are below ABDOMEN: Lung bases: Lung bases are clear. Top normal heart size. Solid organs: There is a new hypodensity in the posterior segment of the right lobe of the liver which likely represents a metastatic lesion measuring 1.4 cm. Reference image 25/3. There is also a subtle hypodensity at the surface of the posterior segment right lobe of the liver on image 14/3, measuring 1 cm, which is also suspicious for a metastatic lesion. At the dome of the liver on image 7/3 is a third lesion which measures 1 cm, as well, also highly suspicious for a metastatic lesion. Spleen is unremarkable. Gallbladder is surgically absent. Biliary system is non dilated. Air is present in the biliary tree, an expected finding. Remote Whipple procedure. No adrenal nodules. Kidneys demonstrate normal size and enhancement, without hydronephrosis. Peritoneum and bowel: Bowel loops demonstrate normal wall thickness and caliber. No free fluid or air. Nodes and vessels: No retroperitoneal or mesenteric adenopathy by size criteria. The previous ill- defined soft tissue mass anterior to the inferior vena cava has further increased in size, and is very likely malignancy. By my measurements on previous image 37/2, it measured 2.4 x 1.3 cm. On current image 36/3, it measures 2.9 x 1.8 cm. Aorta and inferior vena cava are normal in size. Miscellaneous: No ventral hernias. PELVIS: Genitourinary: Bladder wall thickness is normal. Miscellaneous: No inguinal hernias or adenopathy. Bones: No suspicious bony lesions. No vertebral body compression fractures. Lumbar degenerative change. IMPRESSION: 1. Remote Whipple procedure. 2. Interval development of 3 separate liver lesions which are highly suspicious for metastatic disease. 3. Interval increase in size of ill-defined soft tissue mass anterior to the inferior vena cava, which very likely represents malignancy, as well. Discharge Date/Time: 07/05/22 16:58
[2022-07-05] MEDS ORDERED: iohexoL-300 100 ML VIAL IVP ONE (15:27)
[2022-07-05] MEDS ORDERED: DIATRIZOATE MEGLU/DIATRIZO SOD 30 ML BOTTLE PO ONE (15:28)
--- NOTE | 2022-07-05 16:02 | CT Report ---
PROCEDURE: ABDOMEN/PELVIS W INDICATIONS: diffuse abd pain CONTRAST: 100mL Omni 300 TECHNIQUE: After the administration of intravenous contrast, 5 mm thick sections acquired from the diaphragms to the symphysis. 5 mm thick coronal and sagittal reformats were acquired. For radiation dose reducti on, the following was used: automated exposure control, adjustment of mA and/or kV according to bren ent size. COMPARISON: 05/17/2022. FINDINGS: Image quality: Excellent. ABDOMEN: Lung bases: Lung bases are clear. Top normal heart size. Solid organs: There is a new hypodensity in the posterior segment of the right lobe of the liver whic h likely represents a metastatic lesion measuring 1.4 cm. Reference image 25/3. There is also a subtl e hypodensity at the surface of the posterior segment right lobe of the liver on image 14/3, measurin g 1 cm, which is also suspicious for a metastatic lesion. At the dome of the liver on image 7/3 is a third lesion which measures 1 cm, as well, also highly suspicious for a metastatic lesion. Spleen is unremarkable. Gallbladder is surgically absent. Biliary system is non dilated. Air is present in the biliary tree, an expected finding. Remote Whipple procedure. No adrenal nodules. Kidneys demonstrat e normal size and enhancement, without hydronephrosis. Peritoneum and bowel: Bowel loops demonstrate normal wall thickness and caliber. No free fluid or a ir. Nodes and vessels: No retroperitoneal or mesenteric adenopathy by size criteria. The previous ill-de fined soft tissue mass anterior to the inferior vena cava has further increased in size, and is very likely malignancy. By my measurements on previous image 37/2, it measured 2.4 x 1.3 cm. On current im age 36/3, it measures 2.9 x 1.8 cm. Aorta and inferior vena cava are normal in size. Miscellaneous: No ventral hernias. PELVIS: Genitourinary: Bladder wall thickness is normal. Miscellaneous: No inguinal hernias or adenopathy. Bones: No suspicious bony lesions. No vertebral body compression fractures. Lumbar degenerative brooke nge. IMPRESSION: 1. Remote Whipple procedure. 2. Interval development of 3 separate liver lesions which are highly suspicious for metastatic diseas e. 3. Interval increase in size of ill-defined soft tissue mass anterior to the inferior vena cava, whic h very likely represents malignancy, as well. Reviewed by: Dwight Jo MD on 07/05/2022 4:01 PM PST Approved by: Dwight Jo MD on 07/05/2022 4:01 PM PST Station ID: [id number]
== END 2022-07-05 16:58 | disposition home or self-care (01) ==
LOC: ED 12:53
DX: C78.7 Secondary malignant neoplasm of liver and intrahepatic bile duct (principal); C76.2 Malignant neoplasm of abdomen; E87.1 Hypo-osmolality and hyponatremia; R79.89 Other specified abnormal findings of blood chemistry
CPT/HCPCS: 36415; 74177; 80053; 83690; 85025; 96360; 99284; Q9967

== ENCOUNTER 2022-07-19 08:41 | Outpatient (CLI) | payer MEDICARE ==
[2022-07-19] MEDS ORDERED: LIDOCAINE-MPF 1% 5 ML VIAL ONE ×2 (08:57→10:43)
[2022-07-19 09:36] LABS: INR 1.2 (0.8-1.2); PT - PROTHROMBIN TIME 13.7 secs (9.9-12.6)
[2022-07-19 09:43] LABS: PARTIAL THROMBOPLASTIN TIME 27.4 secs (24.9-33.3)
[2022-07-19 09:44] LABS: BASOPHILS % (AUTO) 0.5 %; EOSINOPHILS % (AUTO) 0.1 %; HCT - HEMATOCRIT 35.3 % (37.0-47.0); HGB - HEMOGLOBIN 11.1 g/dL (12.0-16.0); LYMPHOCYTES # (AUTO) 1.1 10^3/uL (1.5-3.5); LYMPHOCYTES % (AUTO) 13.6 %; MEAN CORPUSCULAR HEMOGLOBIN 28.5 pg (27.0-31.0); MEAN CORPUSCULAR HGB CONC 31.4 g/dL (32.0-36.0); MEAN CORPUSCULAR VOLUME 90.5 fL (81.0-99.0); MEAN PLATELET VOLUME 11.2 fL (7.9-10.8); MONOCYTES # (AUTO) 0.8 10^3/uL (0.0-1.0); MONOCYTES % (AUTO) 10.2 %; NEUTROPHILS # (AUTO) 5.9 10^3/uL (1.5-6.6); NEUTROPHILS % (AUTO) 75.5 %; PLT - PLATELET COUNT 380 10^3/uL (130-450); RED CELL DISTRIBUTION WIDTH 16.3 % (12.0-15.0); WHITE BLOOD COUNT 7.9 x10^3/uL (4.8-10.8)
[2022-07-19] MEDS ORDERED: fentaNYL 100 MCG/2 ML VIAL ONE (09:45)
[2022-07-19] MEDS ORDERED: MIDAZOLAM 2 MG/2 ML VIAL ONE (09:45)
[2022-07-19] MEDS ORDERED: ONDANSETRON 4 MG/2 ML VIAL ONE (09:45)
[2022-07-19] MEDS ORDERED: MIDAZOLAM 2 MG/2 ML VIAL IVP ONE (10:20)
[2022-07-19] MEDS ORDERED: LIDOCAINE-MPF 1% 5 ML VIAL SUBQ ONE (10:20)
[2022-07-19] MEDS ORDERED: ONDANSETRON 4 MG/2 ML VIAL IVP ONE (10:20)
[2022-07-19] MEDS ORDERED: LACTATED RINGERS 1,000 ML IV ONE (11:49)
[2022-07-19 14:41] VITALS: BP 118/62
[2022-07-19] MEDS ORDERED: fentaNYL 100 MCG/2 ML VIAL IVP STA (14:47)
--- NOTE | 2022-07-19 15:55 | CT Report ---
PROCEDURE: LIVER BX PERC Sedation analgesia for 60 minutes. INDICATIONS: RT LIVER LOBE LESION TECHNIQUE: The indications, alternatives, benefits, risks, and possible complications of the procedure were comm unicated to the patient. Informed written consent from the patient was obtained and placed in the art. Continuous EKG and hemodynamic monitoring was started by trained personnel. For radiation dose reduction, the following was used: automated exposure control, adjustment of mA and/or kV according to patient size. The patient was brought to the CT suite and enamel burner spiral CT imaging was performed with localization g rid. The appropriate site for percutaneous access to the biopsy target was marked, was prepped and d raped sterilely, and was infused with local anaesthesia. Under CT guidance, a core biopsy trocar and needle set was advanced to the biopsy target, and specimen(s) were obtained. The trocar and needle were then removed, and the patient was sent for post-procedure monitoring. COMPARISON: CT abdomen pelvis 07/05/2022 FINDINGS: Biopsy site: Peripheral aspect of right lobe segment 5/6 Needle: 20 gauge biopsy needle with a 19-gauge introducer trocar. Number of passes: 4 Medications: 1% lidocaine for local anaesthesia. IV Fentanyl and Versed for conscious sedation for 60 minutes (see nursing record). Complications: None. IMPRESSION: Successful CT-guided biopsy of inferior right lobe liver lesion. Pathology is pending. Reviewed by: Brigid Acosta MD on 07/19/2022 3:54 PM PDT Approved by: Brigid Acosta MD on 07/19/2022 3:54 PM PDT Station ID: [id number]
== END 2022-07-19 08:42 | disposition home or self-care (01) ==
LOC: DI 08:41
PROVIDERS: ATTEND Internal Medicine
DX: C78.7 Secondary malignant neoplasm of liver and intrahepatic bile duct (principal)
CPT/HCPCS: 36415; 47000; 85025; 85610; 85730; J7120

== ENCOUNTER → 2022-07-21 | Outpatient (CLI) | payer MEDICARE ==
[~2022-07-21] MED LIST: DEXAMETHASONE 20 MG/5 ML VIAL ONE; FAMOTIDINE 20 MG/2 ML VIAL IVP ONE; SODIUM CHLORIDE 0.9% 0 ML IV ONE; SODIUM CHLORIDE 0.9% 1,000 ML IV ONE; diphenhydrAMINE INJ 50 MG/ML VIAL ONE
[2022-07-21 15:22] LABS: BASOPHILS % (AUTO) 0.7 %; EOSINOPHILS # (AUTO) 0.1 10^3/uL (0.0-0.7); EOSINOPHILS % (AUTO) 0.9 %; HGB - HEMOGLOBIN 10.8 g/dL (12.0-16.0); LYMPHOCYTES # (AUTO) 1.4 10^3/uL (1.5-3.5); LYMPHOCYTES % (AUTO) 23.4 %; MEAN CORPUSCULAR HEMOGLOBIN 28.3 pg (27.0-31.0); MEAN CORPUSCULAR HGB CONC 30.9 g/dL (32.0-36.0); MEAN CORPUSCULAR VOLUME 91.9 fL (81.0-99.0); MEAN PLATELET VOLUME 11.9 fL (7.9-10.8); MONOCYTES # (AUTO) 0.9 10^3/uL (0.0-1.0); MONOCYTES % (AUTO) 16.1 %; NEUTROPHILS # (AUTO) 3.4 10^3/uL (1.5-6.6); NEUTROPHILS % (AUTO) 58.7 %; PLT - PLATELET COUNT 361 10^3/uL (130-450); RED BLOOD COUNT 3.81 10^6/uL (4.20-5.40); WHITE BLOOD COUNT 5.9 x10^3/uL (4.8-10.8)
[2022-07-21 15:33] LABS: ALBUMIN 3.4 g/dL (3.2-5.5); ALBUMIN/GLOBULIN RATIO 1.1 (1.0-2.2); ALKALINE PHOSPHATASE 100 IU/L (42-121); ALT ALANINE AMINOTRANSFERASE < 10 IU/L (10-60); AST ASPARTATE AMINOTRANSFERASE 24 IU/L (10-42); BILIRUBIN,TOTAL 0.5 mg/dL (0.2-1.0); BUN - BLOOD UREA NITROGEN 28 mg/dL (6-20); CALCIUM 8.5 mg/dL (8.5-10.3); CARBON DIOXIDE - CO2 26 mmol/L (21-32); CHLORIDE 99 mmol/L (101-111); CREATININE 0.5 mg/dL (0.4-1.0); GFR - MDRD 121 (>89); GLUCOSE 116 mg/dL (70-100); MAGNESIUM 2.2 mg/dL (1.7-2.8); PHOSPHORUS 4.2 mg/dL (2.5-4.6); POTASSIUM 3.9 mmol/L (3.5-5.0); SODIUM 132 mmol/L (135-145); TOTAL PROTEIN 6.5 g/dL (6.7-8.2)
== END ==
LOC: MAC.MOP 13:14
PROVIDERS: ATTEND Specialist
DX: C25.9 Malignant neoplasm of pancreas, unspecified (principal); Z79.899 Other long term (current) drug therapy
CPT/HCPCS: 36415; 80053; 83735; 84100; 85025

== ENCOUNTER 2022-08-13 08:00 | Outpatient (CLI) | payer MEDICARE ==
[2022-08-13 14:39] LABS: BILIRUBIN,URINE NEGATIVE (NEGATIVE); GLUCOSE, URINE (UA) NEGATIVE (NEGATIVE); KETONES,URINE (UA) NEGATIVE (NEGATIVE); LEUKOCYTE ESTERASE, URINE TRACE (NEGATIVE); NITRITE,URINE NEGATIVE (NEGATIVE); OCCULT BLOOD,URINE SMALL (NEGATIVE); PROTEIN,URINE NEGATIVE (NEGATIVE); UROBILINOGEN,URINE 0.2 (NORMAL) E.U./dL (NORMAL)
[2022-08-13 14:57] LABS: BACTERIA,URINE Moderate /HPF (None Seen); CLARITY,URINE CLEAR (CLEAR); RBC,URINE 0-5 /HPF (0-5); SQUAMOUS EPITHELIAL CELL,UR NONE SEEN (<= Few)
== END 2022-08-13 23:59 | disposition home or self-care (01) ==
LOC: LAB.S 08:00
PROVIDERS: ATTEND Emergency Medicine
DX: R30.0 Dysuria (principal)
CPT/HCPCS: 81001; 87077; 87086; 87181

== ENCOUNTER 2022-09-13 12:50 | Outpatient (CLI) | payer MEDICARE ==
--- NOTE | 2022-09-13 16:29 | XRAY Report ---
PROCEDURE: Chest 2 View X-Ray INDICATIONS: DYSPNEA, CARCINOMA OF AMPULLA OF VATER TECHNIQUE: 2 views of the chest were acquired. COMPARISON: None. FINDINGS: Surgical changes and devices: Right chest wall fabián catheter. Lungs and pleura: No pleural effusions or pneumothorax. Lungs are clear. Mediastinum: Mediastinal contours appear normal. Heart size is normal. Bones and chest wall: No suspicious bony lesions. Overlying soft tissues appear unremarkable. IMPRESSION: No acute process. Reviewed by: Thomas Garcia MD on 09/13/2022 4:28 PM PDT Approved by: Thomas Garica MD on 09/13/2022 4:28 PM PDT Station ID: [id number]
== END 2022-09-13 23:59 | disposition home or self-care (01) ==
LOC: DI.S 12:50
PROVIDERS: ATTEND Nurse Practitioner Adult Health
DX: R06.00 Dyspnea, unspecified (principal); C24.1 Malignant neoplasm of ampulla of Vater; J91.0 Malignant pleural effusion

== ENCOUNTER 2022-10-18 11:46 | Outpatient (CLI) | payer MEDICARE ==
[2022-10-18 12:01] LABS: BASOPHILS % (AUTO) 0.8 %; EOSINOPHILS % (AUTO) 1.6 %; HCT - HEMATOCRIT 26.8 % (37.0-47.0); HGB - HEMOGLOBIN 8.5 g/dL (12.0-16.0); LYMPHOCYTES % (AUTO) 67.7 %; MEAN CORPUSCULAR HEMOGLOBIN 26.3 pg (27.0-31.0); MEAN CORPUSCULAR HGB CONC 31.7 g/dL (32.0-36.0); MONOCYTES % (AUTO) 3.1 %; NEUTROPHILS % (AUTO) 26.8 %; PLT - PLATELET COUNT 105 10^3/uL (130-450); RED BLOOD COUNT 3.23 10^6/uL (4.20-5.40); RED CELL DISTRIBUTION WIDTH 17.6 % (12.0-15.0)
[2022-10-18 12:04] LABS: ABNORMAL LYMPHS % (MANUAL) 0 %; WHITE BLOOD COUNT 1.3 x10^3/uL (4.8-10.8)
[2022-10-18 12:12] LABS: ALBUMIN 2.4 g/dL (3.2-5.5); ALBUMIN/GLOBULIN RATIO 0.9 (1.0-2.2); BILIRUBIN,TOTAL 0.6 mg/dL (0.2-1.0); CALCIUM 8.1 mg/dL (8.5-10.3); CREATININE 0.4 mg/dL (0.4-1.0); MAGNESIUM 1.6 mg/dL (1.7-2.8); POTASSIUM 4.4 mmol/L (3.5-5.0); TOTAL PROTEIN 5.2 g/dL (6.7-8.2)
[2022-10-18 12:29] LABS: BAND NEUTROPHILS % (MANUAL) 1 %; BASOPHILS % (MANUAL) 2 %; LYMPHOCYTES # (MANUAL) 0.9 10^3/uL (1.5-3.5); LYMPHOCYTES % (MANUAL) 65 %; METAMYELOCYTES % (MANUAL) 2 %; NEUTROPHILS # (MANUAL) 0.3 10^3/uL (1.5-6.6); REACTIVE LYMPHS % (MANUAL) 4 %
[2022-10-18 12:30] LABS: DIFFERENTIAL COMMENT MANUAL DIFFERENTIAL; PLATELET ESTIMATE, MANUAL DECREASED (<130,000) (NORMAL); PLATELET MORPHOLOGY NORMAL APPEARANCE (NORMAL)
== END 2022-10-18 11:47 | disposition home or self-care (01) ==
LOC: LAB.R 11:46
PROVIDERS: ATTEND Internal Medicine
DX: C25.9 Malignant neoplasm of pancreas, unspecified (principal)
CPT/HCPCS: 80053; 83735; 84100; 85025

== ENCOUNTER 2022-11-16 10:46 | Day surgery (SDC) | payer MEDICARE ==
--- NOTE | 2022-11-16 11:01 | ANESTHESIA ---
Pre-Anesthesia VS, & Labs - Diagnosis ampullary CA - Procedure PICC line Height: 5 ft 4 in - NPO Other - Is Patient ?: Not Applicable Home Medications and Allergies Apixaban [Eliquis] 5 mg PO BID 02/11/22 Latanoprost 0.005% Ophth Drops [Xalatan Ophth Drops] 1 drops EACHEYE QPM 02/11/22 Lipase/Protease/Amylase [Truman Duran 36,000 Unit Capsule] 1 cap PO PRN PRN 02/11/22 Lipase/Protease/Amylase [Truman Duran 36,000 Unit Capsule] 2 cap PO PRN PRN 02/11/22 Loperamide [Imodium] 2 - 4 mg PO QID PRN 02/11/22 Pantoprazole Sodium [Protonix] 20 mg PO QDAC 02/11/22 Prochlorperazine Maleate [Compazine] 10 mg PO TID PRN 02/11/22 Timolol 0.25% Ophth Drops [Timoptic 0.25% Ophth Drops] 1 drops EACHEYE BID 02/11/22 ondansetron HCL [Ondansetron HCl] 8 mg PO Q8H PRN 02/11/22 dexAMETHasone [Decadron] 4 mg PO UD 04/05/22 OLANZapine [Olanzapine] 5 mg PO PRN PRN 07/05/22 fentaNYL 50 MCG PATCH [Duragesic 50mcg patch] 50 mcg PO UD 09/15/22 Allergies/Adverse Reactions: Allergies Allergy/AdvReac Type Severity Reaction Status Date / Time strawberry Allergy Unknown Verified 07/05/22 13:01 Anes History & Medical History - Anesthetic History Anesthesia Complications: reports: No previous complications Family history of Anesthesia Complications: Denies Family history of Malignant Hyperthermia: Denies - Medical History Cardiovascular: reports: Hypertension, Atrial fibrillation Pulmonary: reports: None Gastrointestinal: reports: GERD Urinary: reports: None Neuro: reports: None, Peripheral neuropathy Musculoskeletal: reports: None Endocrine/Autoimmune: reports: None Blood Disorders: reports: None Skin: reports: None Smoking Status: Never smoker - Surgical History General: reports: Cholecystectomy, Other Gynecologic: reports: Other Orthopedic: reports: Other Exam General: Alert, Oriented x3, Cooperative Dental: WNL Mouth Openin Fingerbreadth Neck Mobility: Normal Mallampati classification: II Thyromental Distance: 4-6 cm Respiratory: Lungs clear Cardiovascular: Regular rate Plan Anesthesia Type: MAC Consent for Procedure(s) Verified and Reviewed: Yes Code Status: Do Not Attempt Resuscitation ASA classification: 4-Incapacitating disease Is this case an emergency?: No
[2022-11-16 11:22] VITALS: BP 127/71
--- NOTE | 2022-11-16 13:20 | ANESTHESIA POST OP EVALUATION ---
Anesthesia Post Eval - Post Anesthesia Eval Vitals: Last Vital Signs Temp 36.2 C L 11/16/22 11:10 Pulse 68 11/16/22 11:10 Resp 18 11/16/22 11:10 BP 127/71 11/16/22 11:10 Pulse Ox 97 11/16/22 11:10 O2 Flow Rate CV Function Including HR & BP: Stable Pain Control: Satisfactory Nausea & Vomiting: Negative Mental Status: Baseline Respiratory Status: Airway Patent Hydration Status: Satisfactory Anesthesia Complications: None
--- NOTE | 2022-11-16 13:44 | XRAY Report ---
PROCEDURE: Chest for Line Placement INDICATIONS: PICC line TECHNIQUE: One view of the chest was acquired. COMPARISON: 10/27/2022 FINDINGS: Surgical changes and devices: Left-sided PICC line is present. The tip projects to the right of midl ine in the expected location of the cavoatrial junction. A right IJ Mediport is present with the tip probably in the proximal right atrium. There are surgical clips in the left upper quadrant of the abd omen. Lungs and pleura: Low lung volumes. Probable mild bibasilar atelectasis. No pneumothorax or signific ant pleural effusion. Mediastinum: Mediastinal contours appear normal. Heart size is normal. Bones and chest wall: No suspicious bony lesions. Overlying soft tissues appear unremarkable. IMPRESSION: 1. Left PICC line with the tip probably at the cavoatrial junction. 2. No evidence of line placement complication. Reviewed by: Brigid Acosta MD on 11/16/2022 12:42 PM MARLON Approved by: Brigid Acosta MD on 11/16/2022 12:42 PM AKHERNANDO Station ID: [id number]
== END 2022-11-16 10:47 | disposition home or self-care (01) ==
LOC: SDS 10:46
PROVIDERS: ATTEND Nurse Practitioner Adult Health
DX: C24.1 Malignant neoplasm of ampulla of Vater (principal); I10 Essential (primary) hypertension; I48.91 Unspecified atrial fibrillation
CPT/HCPCS: 36569; C1751

== ENCOUNTER 2022-12-13 14:58 | Outpatient (CLI) | payer MEDICARE ==
[2022-12-13 15:04] LABS: BASOPHILS % (AUTO) 0.8 %; EOSINOPHILS % (AUTO) 0.6 %; HCT - HEMATOCRIT 30.8 % (37.0-47.0); HGB - HEMOGLOBIN 9.5 g/dL (12.0-16.0); LYMPHOCYTES # (AUTO) 1.4 10^3/uL (1.5-3.5); LYMPHOCYTES % (AUTO) 28.1 %; MEAN CORPUSCULAR HEMOGLOBIN 27.1 pg (27.0-31.0); MEAN CORPUSCULAR HGB CONC 30.8 g/dL (32.0-36.0); MEAN PLATELET VOLUME 12.7 fL (7.9-10.8); MONOCYTES # (AUTO) 0.2 10^3/uL (0.0-1.0); MONOCYTES % (AUTO) 3.5 %; NEUTROPHILS # (AUTO) 3.2 10^3/uL (1.5-6.6); NEUTROPHILS % (AUTO) 66.4 %; PLT - PLATELET COUNT 402 10^3/uL (130-450); RED CELL DISTRIBUTION WIDTH 19.9 % (12.0-15.0); WHITE BLOOD COUNT 4.9 x10^3/uL (4.8-10.8)
[2022-12-13 15:43] LABS: ALBUMIN 2.9 g/dL (3.2-5.5); ALBUMIN/GLOBULIN RATIO 1.1 (1.0-2.2); BILIRUBIN,TOTAL 0.4 mg/dL (0.2-1.0); CALCIUM 8.1 mg/dL (8.5-10.3); CREATININE 0.4 mg/dL (0.6-1.3); MAGNESIUM 1.8 mg/dL (1.7-2.3); PHOSPHORUS 3.3 mg/dL (3.7-7.2); POTASSIUM 4.2 mmol/L (3.5-4.5); TOTAL PROTEIN 5.6 g/dL (6.4-8.9)
== END 2022-12-13 14:59 | disposition home or self-care (01) ==
LOC: LAB.R 14:58
PROVIDERS: ATTEND Internal Medicine
DX: C25.9 Malignant neoplasm of pancreas, unspecified (principal)
CPT/HCPCS: 80053; 83735; 84100; 85025

== ENCOUNTER 2022-12-20 11:40 | Outpatient (CLI) | payer MEDICARE ==
[2022-12-20 11:52] LABS: EOSINOPHILS % (AUTO) 0.7 %; HCT - HEMATOCRIT 30.3 % (37.0-47.0); HGB - HEMOGLOBIN 9.5 g/dL (12.0-16.0); LYMPHOCYTES # (AUTO) 0.5 10^3/uL (1.5-3.5); LYMPHOCYTES % (AUTO) 31.8 %; MEAN CORPUSCULAR HEMOGLOBIN 27.3 pg (27.0-31.0); MEAN CORPUSCULAR HGB CONC 31.4 g/dL (32.0-36.0); MEAN CORPUSCULAR VOLUME 87.1 fL (81.0-99.0); MONOCYTES # (AUTO) 0.1 10^3/uL (0.0-1.0); MONOCYTES % (AUTO) 3.3 %; NEUTROPHILS # (AUTO) 0.9 10^3/uL (1.5-6.6); NEUTROPHILS % (AUTO) 61.5 %; PLT - PLATELET COUNT 134 10^3/uL (130-450); RED BLOOD COUNT 3.48 10^6/uL (4.20-5.40); RED CELL DISTRIBUTION WIDTH 19.5 % (12.0-15.0)
[2022-12-20 11:56] LABS: SLIDE REVIEW? Indicated; WHITE BLOOD COUNT 1.5 x10^3/uL (4.8-10.8)
[2022-12-20 12:09] LABS: ALBUMIN 2.9 g/dL (3.2-5.5); BILIRUBIN,TOTAL 0.4 mg/dL (0.2-1.0); CALCIUM 8.1 mg/dL (8.5-10.3); CREATININE 0.5 mg/dL (0.6-1.3); MAGNESIUM 1.8 mg/dL (1.7-2.3); POTASSIUM 4.1 mmol/L (3.5-4.5); TOTAL PROTEIN 5.8 g/dL (6.4-8.9)
[2022-12-20 12:18] LABS: RBC MORPHOLOGY (MULTIPLE) 4+ ANISOCYTOSIS (NORMAL)
== END 2022-12-20 11:41 | disposition home or self-care (01) ==
LOC: LAB.R 11:40
PROVIDERS: ATTEND Internal Medicine
DX: C25.9 Malignant neoplasm of pancreas, unspecified (principal)
CPT/HCPCS: 80053; 83735; 84100; 85025

== ENCOUNTER 2022-12-27 14:06 | Outpatient (CLI) | payer MEDICARE ==
[2022-12-27 20:11] LABS: GLUCOSE, URINE (UA) NEGATIVE (NEGATIVE); KETONES,URINE (UA) NEGATIVE (NEGATIVE); LEUKOCYTE ESTERASE, URINE MODERATE (NEGATIVE); NITRITE,URINE POSITIVE (NEGATIVE); OCCULT BLOOD,URINE LARGE (NEGATIVE); PROTEIN,URINE >=300 mg/dL (NEGATIVE); UROBILINOGEN,URINE 1 (NORMAL) E.U./dL (NORMAL)
[2022-12-27 20:15] LABS: BILIRUBIN,URINE NEGATIVE (NEGATIVE); CLARITY,URINE BLOODY (CLEAR); ICTOTEST,URINE NEGATIVE
[2022-12-27 20:31] LABS: BACTERIA,URINE Moderate /HPF (None Seen); RBC,URINE TNTC /HPF (0-5); SQUAMOUS EPITHELIAL CELL,UR NONE SEEN (<= Few); WBC,URINE >25 /HPF (0-5)
== END 2022-12-27 14:07 | disposition home or self-care (01) ==
LOC: LAB.S 14:06
PROVIDERS: ATTEND Nurse Practitioner Adult Health
DX: R31.9 Hematuria, unspecified (principal)
CPT/HCPCS: 81001; 81003; 87086

== ENCOUNTER 2022-12-31 08:00 | Outpatient (CLI) | payer MEDICARE ==
[2022-12-31 15:53] LABS: BILIRUBIN,URINE NEGATIVE (NEGATIVE); GLUCOSE, URINE (UA) NEGATIVE (NEGATIVE); KETONES,URINE (UA) NEGATIVE (NEGATIVE); LEUKOCYTE ESTERASE, URINE TRACE (NEGATIVE); NITRITE,URINE NEGATIVE (NEGATIVE); OCCULT BLOOD,URINE LARGE (NEGATIVE); PROTEIN,URINE TRACE mg/dL (NEGATIVE); UROBILINOGEN,URINE 1 (NORMAL) E.U./dL (NORMAL)
[2022-12-31 15:55] LABS: CLARITY,URINE CLOUDY (CLEAR)
[2022-12-31 16:12] LABS: BACTERIA,URINE Rare /HPF (None Seen); RBC,URINE TNTC /HPF (0-5); SQUAMOUS EPITHELIAL CELL,UR FEW Squamous (<= Few)
== END 2022-12-31 23:59 | disposition home or self-care (01) ==
LOC: LAB 08:00
PROVIDERS: ATTEND Urology
DX: R31.9 Hematuria, unspecified (principal)
CPT/HCPCS: 81001; 87086

== ENCOUNTER 2023-01-03 11:30 | Outpatient (CLI) | payer MEDICARE ==
[2023-01-03 11:54] LABS: BASOPHILS % (AUTO) 0.5 %; EOSINOPHILS % (AUTO) 0.4 %; HCT - HEMATOCRIT 28.1 % (37.0-47.0); HGB - HEMOGLOBIN 8.8 g/dL (12.0-16.0); LYMPHOCYTES % (AUTO) 12.9 %; MEAN CORPUSCULAR HEMOGLOBIN 27.2 pg (27.0-31.0); MEAN CORPUSCULAR HGB CONC 31.3 g/dL (32.0-36.0); MEAN CORPUSCULAR VOLUME 86.7 fL (81.0-99.0); MEAN PLATELET VOLUME 12.9 fL (7.9-10.8); MONOCYTES # (AUTO) 0.1 10^3/uL (0.0-1.0); MONOCYTES % (AUTO) 1.6 %; NEUTROPHILS # (AUTO) 6.3 10^3/uL (1.5-6.6); NEUTROPHILS % (AUTO) 84.1 %; PLT - PLATELET COUNT 364 10^3/uL (130-450); RED BLOOD COUNT 3.24 10^6/uL (4.20-5.40); RED CELL DISTRIBUTION WIDTH 20.2 % (12.0-15.0); WHITE BLOOD COUNT 7.5 x10^3/uL (4.8-10.8)
[2023-01-03 11:59] LABS: SLIDE REVIEW? Indicated
[2023-01-03 12:18] LABS: ALBUMIN 2.9 g/dL (3.2-5.5); BILIRUBIN,TOTAL 0.6 mg/dL (0.2-1.0); CALCIUM 8.4 mg/dL (8.5-10.3); CREATININE 0.5 mg/dL (0.6-1.3); MAGNESIUM 1.7 mg/dL (1.7-2.3); PHOSPHORUS 3.5 mg/dL (2.5-5.0); POTASSIUM 4.5 mmol/L (3.5-4.5); TOTAL PROTEIN 5.7 g/dL (6.4-8.9)
[2023-01-03 12:24] LABS: PLATELET ESTIMATE, MANUAL NORMAL (130-450,000) (NORMAL); PLATELET MORPHOLOGY NORMAL APPEARANCE (NORMAL); WBC MORPHOLOGY (MULTIPLE) NORMAL APPEARANCE (NORMAL)
== END 2023-01-03 11:31 | disposition home or self-care (01) ==
LOC: LAB.R 11:30
PROVIDERS: ATTEND Internal Medicine
DX: C25.9 Malignant neoplasm of pancreas, unspecified (principal)
CPT/HCPCS: 80053; 83735; 84100; 84134; 84478; 85025; 86140

== ENCOUNTER 2023-01-11 11:13 | Outpatient (CLI) | payer MEDICARE ==
--- NOTE | 2023-01-11 14:24 | XRAY Report ---
PROCEDURE: Chest 2 View X-Ray INDICATIONS: PRESENCE OF PICC LINE TECHNIQUE: 2 views of the chest were acquired. COMPARISON: 11/16/2022 FINDINGS: Surgical changes and devices: Right portacatheter terminates in the lower SVC. A left PICC terminate s in the brachiocephalic vein or SVC origin. Lungs and pleura: No dense consolidation or pleural effusion. Mediastinum: Heart size is within normal limits Bones and chest wall: Degenerative changes. IMPRESSION: Left PICC terminates in the brachiocephalic vein or SVC origin a right portacatheter terminates in th e lower SVC. Reviewed by: Nestor Arita MD on 01/11/2023 2:23 PM PDT Approved by: Nestor Arita MD on 01/11/2023 2:23 PM PDT Station ID: [id number]
== END 2023-01-11 11:14 | disposition home or self-care (01) ==
LOC: DI 11:13
PROVIDERS: ATTEND Nurse Practitioner Adult Health
DX: T82.524A Displacement of infusion catheter, initial encounter (principal)

== ENCOUNTER 2023-01-12 09:18 | Day surgery (SDC) | payer MEDICARE ==
[2023-01-12 09:46] VITALS: BP 126/69; O2SAT 100
--- NOTE | 2023-01-12 11:46 | XRAY Report ---
PROCEDURE: Chest for Line Placement INDICATIONS: Post picc TECHNIQUE: One view of the chest was acquired. COMPARISON: Chest x-ray 09/10/2022 FINDINGS: Surgical changes and devices: Right Port-A-Cath is present distal tip projecting over the distal SVC . Left PICC line terminates overlying the midline of the thoracic spine. Lungs and pleura: No pleural effusions or pneumothorax. Lungs are clear. Mediastinum: Mediastinal contours appear normal. Heart size is normal. Bones and chest wall: No suspicious bony lesions. Overlying soft tissues appear unremarkable. IMPRESSION: Left PICC line is present with distal tip projecting over the midline of the thoracic spine. Patient is rotated and placement is likely venous. However, it is not felt to be definitive on the basis of t his exam given patient rotation and midline in position. Repeat view with out rotation or forward adv ancement is recommended. Reviewed by: Robyn Pabon MD on 01/12/2023 11:44 AM PDT Approved by: Robyn Pabon MD on 01/12/2023 11:44 AM PDT Station ID: [id number]
--- NOTE | 2023-01-12 13:37 | ANESTHESIA PROCEDURE NOTE ---
Anesth Central Line Template - Central Line Central Line Preparation: Consent Obtained Central line location: Left Brachial Central line type: PICC Single Lumen Central line catheter tip site resides: Atrium, right Central line aftercare: Secured, Placement confirmed, No pneumothorax, No complications, Bundle checklist complete, Pt tolerated well (per portable CXR, radiology report pending)
--- NOTE | 2023-01-12 16:12 | CONSULTATION NOTE ---
Consultation Report: radiologist recommends advancing PICC line. PICC advanced 6cm under sterile technique, with 4cm remaining outside insertion point. Catheter secured with steri-strips and statlock. Sterile dressing applied. Pt tolerated well, NAC. Radiologist reports good placement of PICC on f/u CXR after advancement.
--- NOTE | 2023-01-12 16:16 | XRAY Report ---
PROCEDURE: Chest for Line Placement INDICATIONS: PICC LINE ADVANCEMENT TECHNIQUE: One view of the chest was acquired. COMPARISON: Chest x-ray 01/12/2023 FINDINGS: Surgical changes and devices: Right Port-A-Cath is unchanged. Left PICC line is present with distal tip projecting over the proximal SVC. Lungs and pleura: No pleural effusions or pneumothorax. Lungs are clear. Mediastinum: Mediastinal contours appear normal. Heart size is normal. Bones and chest wall: No suspicious bony lesions. Overlying soft tissues appear unremarkable. IMPRESSION: Left PICC line as above. Reviewed by: Robyn Pabon MD on 01/12/2023 4:15 PM PDT Approved by: Robyn Pabon MD on 01/12/2023 4:15 PM PDT Station ID: [id number]
== END 2023-01-12 09:19 | disposition home or self-care (01) ==
LOC: SDS 09:18
PROVIDERS: ATTEND Nurse Anesthetist, Certified Registered
DX: C24.1 Malignant neoplasm of ampulla of Vater (principal)
CPT/HCPCS: 36569; C1751

== ENCOUNTER 2023-01-12 15:07 | Outpatient (CLI) | payer MEDICARE ==
--- NOTE | 2023-01-12 15:46 | XRAY Report ---
PROCEDURE: Chest 2 View X-Ray INDICATIONS: PICC CONFIRMATION TECHNIQUE: 2 views of the chest were acquired. COMPARISON: Chest x-ray 01/12/2023. FINDINGS: Surgical changes and devices: Right-sided Port-A-Cath in place with tip projecting over the distal S VC. Left-sided PICC with tip likely projecting over the distal left brachiocephalic vein versus proxi mal SVC. Surgical clips projecting over the mediastinum. Lungs and pleura: No pleural effusions or pneumothorax. Lungs are clear. Mediastinum: Mediastinal contours appear normal. Heart size is normal. Bones and chest wall: No suspicious bony lesions. Overlying soft tissues appear unremarkable. IMPRESSION: Left-sided PICC with tip likely projecting over the distal left brachiocephalic vein versus proximal SVC. No pneumothorax. Reviewed by: Neil Robles MD on 01/12/2023 3:44 PM PDT Approved by: Neil Robles MD on 01/12/2023 3:44 PM PDT Station ID: [id number]
== END 2023-01-12 15:08 | disposition home or self-care (01) ==
LOC: DI 15:07
PROVIDERS: ATTEND Internal Medicine
DX: Z45.2 Encounter for adjustment and management of vascular access device (principal)

== ENCOUNTER 2023-01-24 08:00 | Outpatient (CLI) | payer MEDICARE ==
[2023-01-24 14:46] LABS: BASOPHILS # (AUTO) 0.1 10^3/uL (0.0-0.1); BASOPHILS % (AUTO) 0.5 %; EOSINOPHILS # (AUTO) 0.1 10^3/uL (0.0-0.7); EOSINOPHILS % (AUTO) 1.1 %; HCT - HEMATOCRIT 37.4 % (37.0-47.0); HGB - HEMOGLOBIN 11.6 g/dL (12.0-16.0); LYMPHOCYTES # (AUTO) 2.7 10^3/uL (1.5-3.5); LYMPHOCYTES % (AUTO) 20.2 %; MEAN CORPUSCULAR HEMOGLOBIN 27.8 pg (27.0-31.0); MEAN CORPUSCULAR VOLUME 89.7 fL (81.0-99.0); MEAN PLATELET VOLUME 13.4 fL (7.9-10.8); MONOCYTES # (AUTO) 1.1 10^3/uL (0.0-1.0); MONOCYTES % (AUTO) 8.4 %; NEUTROPHILS # (AUTO) 9.1 10^3/uL (1.5-6.6); NEUTROPHILS % (AUTO) 68.6 %; PLT - PLATELET COUNT 422 10^3/uL (130-450); RED BLOOD COUNT 4.17 10^6/uL (4.20-5.40); RED CELL DISTRIBUTION WIDTH 20.7 % (12.0-15.0); WHITE BLOOD COUNT 13.3 x10^3/uL (4.8-10.8)
[2023-01-24 16:05] LABS: ALBUMIN 3.1 g/dL (3.2-5.5); ALBUMIN/GLOBULIN RATIO 0.9 (1.0-2.2); BILIRUBIN,TOTAL 0.5 mg/dL (0.2-1.0); CREATININE 0.6 mg/dL (0.6-1.3); CRP - C-REACTIVE PROTEIN 5.9 mg/dL (<0.5); MAGNESIUM 1.7 mg/dL (1.7-2.3); PHOSPHORUS 4.5 mg/dL (2.5-5.0); TOTAL PROTEIN 6.4 g/dL (6.4-8.9)
== END 2023-01-24 23:59 | disposition home or self-care (01) ==
LOC: LAB.R 08:00
PROVIDERS: ATTEND Internal Medicine
DX: C25.9 Malignant neoplasm of pancreas, unspecified (principal); Z79.899 Other long term (current) drug therapy
CPT/HCPCS: 80053; 83735; 84100; 84134; 84478; 85025; 86140; 86301; 86800

== ENCOUNTER 2023-02-07 08:00 | Outpatient (CLI) | payer MEDICARE ==
[2023-02-07 14:57] LABS: BASOPHILS # (AUTO) 0.1 10^3/uL (0.0-0.1); BASOPHILS % (AUTO) 0.4 %; EOSINOPHILS # (AUTO) 0.2 10^3/uL (0.0-0.7); EOSINOPHILS % (AUTO) 1.1 %; HCT - HEMATOCRIT 33.1 % (37.0-47.0); HGB - HEMOGLOBIN 10.3 g/dL (12.0-16.0); LYMPHOCYTES # (AUTO) 1.8 10^3/uL (1.5-3.5); LYMPHOCYTES % (AUTO) 13.4 %; MEAN CORPUSCULAR HEMOGLOBIN 27.6 pg (27.0-31.0); MEAN CORPUSCULAR HGB CONC 31.1 g/dL (32.0-36.0); MEAN CORPUSCULAR VOLUME 88.7 fL (81.0-99.0); MEAN PLATELET VOLUME 12.8 fL (7.9-10.8); MONOCYTES # (AUTO) 0.8 10^3/uL (0.0-1.0); MONOCYTES % (AUTO) 5.8 %; NEUTROPHILS # (AUTO) 10.5 10^3/uL (1.5-6.6); NEUTROPHILS % (AUTO) 78.9 %; PLT - PLATELET COUNT 392 10^3/uL (130-450); RED BLOOD COUNT 3.73 10^6/uL (4.20-5.40); RED CELL DISTRIBUTION WIDTH 18.5 % (12.0-15.0); WHITE BLOOD COUNT 13.3 x10^3/uL (4.8-10.8)
[2023-02-07 15:39] LABS: ALBUMIN 2.8 g/dL (3.2-5.5); ALBUMIN/GLOBULIN RATIO 0.9 (1.0-2.2); BILIRUBIN,TOTAL 0.5 mg/dL (0.2-1.0); CALCIUM 8.4 mg/dL (8.5-10.3); CREATININE 0.5 mg/dL (0.6-1.3); CRP - C-REACTIVE PROTEIN 11.9 mg/dL (<0.5); MAGNESIUM 1.7 mg/dL (1.7-2.3); PHOSPHORUS 3.6 mg/dL (2.5-5.0); POTASSIUM 3.6 mmol/L (3.5-4.5)
== END 2023-02-07 23:59 | disposition home or self-care (01) ==
LOC: LAB.R 08:00
PROVIDERS: ATTEND Internal Medicine
DX: C25.9 Malignant neoplasm of pancreas, unspecified (principal); Z79.899 Other long term (current) drug therapy
CPT/HCPCS: 80053; 83735; 84100; 84134; 84478; 85025; 86140

== ENCOUNTER 2023-02-14 08:00 | Outpatient (CLI) | payer MEDICARE ==
[2023-02-14 15:30] LABS: ALBUMIN 2.9 g/dL (3.2-5.5); ALBUMIN/GLOBULIN RATIO 0.9 (1.0-2.2); BILIRUBIN,TOTAL 0.5 mg/dL (0.2-1.0); CALCIUM 8.7 mg/dL (8.5-10.3); CREATININE 0.5 mg/dL (0.6-1.3); MAGNESIUM 1.8 mg/dL (1.7-2.3); PHOSPHORUS 3.6 mg/dL (2.5-5.0); POTASSIUM 3.6 mmol/L (3.5-4.5); TOTAL PROTEIN 6.1 g/dL (6.4-8.9)
== END 2023-02-14 23:59 | disposition home or self-care (01) ==
LOC: LAB.S 08:00
PROVIDERS: ATTEND Nurse Practitioner Adult Health
DX: C25.9 Malignant neoplasm of pancreas, unspecified (principal); C24.1 Malignant neoplasm of ampulla of Vater; K83.8 Other specified diseases of biliary tract; K91.2 Postsurgical malabsorption, not elsewhere classified; I50.22 Chronic systolic (congestive) heart failure
CPT/HCPCS: 36415; 80053; 83735; 83880; 84100; 85025; 86301